=== PATIENT | female | born 1950 | race Caucasian/White ===

== ENCOUNTER → 2022-08-26 13:00 | Outpatient (CLI) | payer MEDICARE, SELFPAY | PROVIDERS: Visit Provider Internal Medicine | DX: I10 Essential (primary) hypertension (principal); I48.0 Paroxysmal atrial fibrillation; R60.9 Edema, unspecified | CPT/HCPCS: 93270 ==

== ENCOUNTER → 2022-09-16 10:51 | Outpatient (CLI) | payer MEDICARE, SELFPAY | PROVIDERS: Visit Provider Internal Medicine | DX: I10 Essential (primary) hypertension (principal); I48.0 Paroxysmal atrial fibrillation; R00.2 Palpitations | CPT/HCPCS: 78452; 93017; 93306; A9502; J2785 ==

== ENCOUNTER → 2022-12-14 12:19 | Outpatient (CLI) | payer MEDICARE, SELFPAY ==
[2022-12-14 13:37] LABS: Alanine Aminotransferase 20 U/L (12-78); Albumin Level 4.2 g/dl (3.5-5.0); Alkaline Phosphatase 86 U/L (38-126); Aspartate Amino Transferase 25 U/L (14-36); Bilirubin,Indirect 0.4 mg/dL (0.0-0.9); Bilirubin,Total 0.4 mg/dl (0.2-1.3); Bilirubin,Unconjugated 0.5 mg/dL (0.0-1.1); Chol/HDL Ratio 2.7 (1-3.5); Cholesterol 212 mg/dl (140-200); HDL Cholesterol 78 mg/dl (40-60); Total Protein,Serum 7.1 g/dl (6.3-8.2); Triglycerides 154 mg/dl (30-150); VLDL Cholesterol 31 mg/dL (0-40)
[2022-12-14 13:48] LABS: Direct LDL Cholesterol 95.21 mg/dL (100-129)
== END ==
PROVIDERS: PCP Family Medicine; Visit Provider Internal Medicine
DX: I10 Essential (primary) hypertension (principal); I48.0 Paroxysmal atrial fibrillation
CPT/HCPCS: 36415; 80061; 80076

== ENCOUNTER → 2023-01-18 14:42 | Outpatient (CLI) | payer MEDICARE, SELFPAY ==
[2023-01-18 15:56] LABS: Free T4 (Free Thyroxine) 1.12 ng/dl (0.78-2.19)
[2023-01-18 16:21] LABS: Thyroid Stimulating Hormone 1.81 uIU/mL (0.465-4.68)
== END ==
PROVIDERS: PCP Family Medicine; Visit Provider Internal Medicine
DX: I10 Essential (primary) hypertension (principal); I48.0 Paroxysmal atrial fibrillation; Z79.899 Other long term (current) drug therapy
CPT/HCPCS: 36415; 84439; 84443

== ENCOUNTER 2023-08-17 16:32 | Emergency (ER) | payer MEDICARE, SELFPAY ==
[2023-08-17 16:45] VITALS: BP 131/89; PULSE 80; RESP 19; TEMP 37; O2SAT 98; BMI 32.4
[2023-08-17 17:03] LABS: UTC Strep Screen (Rapid) Negative (Negative)
--- NOTE | 2023-08-17 17:03 | ED_ITS ---
Discharge Plan Disposition Patient Disposition: Home, Self-Care Condition: Good Prescriptions Prescriptions: New amoxicillin-pot clavulanate 875-125 mg Tablet 1 tab PO Q12H 7 Days Qty: 14 0RF No Action aspirin [Adult Low Dose Aspirin] 81 mg tablet,delayed release (DR/EC) 81 mg PO DAILY Qty: 30 5RF lisinopril 10 mg tablet 10 mg PO DAILY Xarelto 20 mg tablet 20 mg PO QPM Qty: 90 3RF Rx Instructions: administer with evening meal nebivolol [Bystolic] 10 mg tablet 10 mg PO DAILY Qty: 200 3RF Referrals Follow up/Referrals: Haresh Becerril [Primary Care Provider] - See instructions Activity Restrictions/Add. Instructions Additional Instructions/Restrictions: *Monitor Temp, Over the counter Motrin or Tylenol as directed/as needed Tylenol every 4 hours and Motrin every 6 hours (as long as your family doctor has told you that you can take it) for fever or pain. and straight to ER if unable to lower temp less than 101.0 after medication given *Warm salt water gargles may help to soothe the throat *Throat Lozenges? *Warm fluids like tea with honey may help to soothe the throat? *Sleep elevated *Humidifier/Vaporizer Your throat swab was sent for culture. Those results are typically sent to your primary care. Be sure to follow up in 2-3 days with your family doctor/primary care physician if no improvement so they can review those result and treat if necessary. If you don?t have a primary care doctor, I recommend you get one but in the mean time, you will have to return to a walk in clinic Follow up IMMEDIATELY for new or worsening symptoms or no Noticeable improvement over the next 48-72 hours. 911 for difficulty breathing or swallowing Clinical Impressions Clinical Impression: Sinusitis Qualifiers: Sinusitis location: unspecified location Chronicity: unspecified Qualified Code(s): J32.9 - Chronic sinusitis, unspecified Instructions Patient Instructions: Sinusitis, DI for Sinusitis Discharge ED Provider[place] Ari[place] [facility] [place] Stated complaint: exp to strep, poss sinus inf Mode of Arrival: Ambulatory Source of Information: Patient Limitations: No Limitations Time Seen by Provider: 08/17/23 17:03 Description of Symptoms (Recalled from Triage Doc. by RN): Pt's symptoms are sinus pain and pressure. HEENT Symptoms (Recalled from RN notes): Yes Resp Symptoms (Recalled from RN notes): No Skin Symptoms (Recalled from RN notes): No MS Symptoms (Recalled from RN notes): No Functional Status (Recalled from RN notes): n/a History of Present Illness Provider Complaint: Patient states that she has been having sinus pain and pressure for several days that has not improved States she is having some drainage in the back of her throat States that she thinks she may have a sinus infection but worried that she may have strep throat or something Related Data Home Medications Medication Instructions Recorded Confirmed lisinopril 10 mg tablet 10 mg PO DAILY 08/26/22 08/17/23 Previous Rx's Medication Instructions Recorded aspirin 81 mg tablet,delayed 81 mg PO DAILY #30 tabs 08/26/22 release (Adult Low Dose Aspirin) rivaroxaban 20 mg tablet (Xarelto) 20 mg PO QPM #90 tabs 09/09/22 nebivolol 10 mg tablet (Bystolic) 10 mg PO DAILY #200 tabs 12/25/22 amoxicillin 875 mg-potassium 1 tab PO Q12H 7 days #14 tabs 08/17/23 clavulanate 125 mg tablet Allergies Allergy/AdvReac Type Severity Reaction Status Date / Time No Known Allergies Allergy Verified 08/17/23 17:03 Worker's Comp Is this a Worker's Comp case?: No [facility] Disclaimer: The information contained in this section may have been updated after the patient was seen, as this information can be updated by other users. Medical History HTN (hypertension) PAF (paroxysmal atrial fibrillation) Social History Smoking Status: Unknown if ever smoked alcohol intake: never current occupational status: unemployed Travel in the last 8 weeks: Inside the [place] ROS Obtained: Yes All systems reviewed & no additional complaints except as documented and Yes Systems reviewed as appropriate & no additional complaints except as documented Constitutional Constitutional: Reports system reviewed and no additional complaints, except as documented and Reports as per HPI ENT Ears, Nose, Mouth, and Throat: Reports system reviewed and no additional complaints, except as documented, Reports as per HPI, Reports sinus pain, Reports sinus pressure and Reports sore throat Cardiovascular Cardiovascular: Reports system reviewed and no additional complaints, except as documented and Reports as per HPI Respiratory Respiratory: Reports system reviewed and no additional complaints, except as documented and Reports as per HPI Gastrointestinal Gastrointestingal: Reports system reviewed and no additional complaints, except as documented and as per HPI Musculoskeletal Musculoskeletal: Reports system reviewed and no additional complaints, except as documented and Reports as per HPI Physical Exam General General appearance: alert and in no apparent distress ENT ENT exam: Present mucous membranes moist Expanded ENT Exam Nose exam: Present sinus tenderness Throat exam: Present other (Pharyngeal erythema noted with PND) Respiratory Respiratory exam: Present normal lung sounds bilaterally; Absent respiratory distress or wheezes Cardiovascular Cardiovascular exam: Present regular rate, normal rhythm and normal heart sounds Neurological Exam Neurological exam: Present alert, oriented X3 and normal gait Medical Decision Making Campos Inquiry Pt receiving controlled substance: No Campos was queried for this patient: No Vital Signs: 08/17/23 16:45 Temperature 98.6 F Temperature Source Oral Pulse Rate [Right Radial] 80 Respiratory Rate 19 Blood Pressure [Right Arm] 131/89 Blood Pressure Mean [Right Arm] 103 Blood Pressure Source [Right Arm] Automatic Cuff Blood Pressure Position [Right Arm] Sitting 02 Sat by Pulse Oximetry 98 Oxygen Delivery Method Room Air Lab Data Lab results reviewed: Yes I reviewed the patient's lab results. Lab Results 08/17/23 16:40: Strep Scn Rapid Clinic Negative Orders (Tests/Meds): ORDERS Category Date Time Status Strep Screen Confirmation Stat Micro 08/17/23 16:40 Received
[2023-08-17 17:19] VITALS: BP 131/89; PULSE 80; RESP 19; TEMP 37; O2SAT 98
== END 2023-08-17 17:19 | disposition home or self-care (01) ==
PROVIDERS: Emergency Provider Nurse Practitioner; PCP Family Medicine
DX: J01.90 Acute sinusitis, unspecified (principal); R09.82 Postnasal drip; R09.81 Nasal congestion; I10 Essential (primary) hypertension; I48.0 Paroxysmal atrial fibrillation; Z79.01 Long term (current) use of anticoagulants
CPT/HCPCS: 87880

== ENCOUNTER 2023-09-29 12:16 | Outpatient (CLI) | payer MEDICARE, SELFPAY ==
--- OUTSIDE RECORDS SUMMARY | 2023-09-29 12:19 | XMS_ITS ---
Author Name Unknown Address [address] [place] [address] Phone Organization [facility] Address [address] [place] [address] Phone Care Team Providers Care Plasma Processor Name Role Phone Jed JEAN BAPTISTE, Chetan Unavailable [phone] Haresh Becerril MD Primary Care Provider [phone] Problems Includes: Active, inactive, and resolved Problems All Visits Onset Date Resolved Date Provider Condition S tatus Joint Pain in the Right Knee 05/06/2023 Chetan Adkins MD Active Last Documented On 3 11:37AM ; [facility] Plan of Treatment Instructions to patient Lose weight Last Documented On 4 10:27AM ; [facility] Lose weight Last Documented On 4 10:14AM ; [facility] Lose weight Last Documented On 4 10:31AM ; [facility] Lose weight Last Documented On 4 10:55AM ; [facility] Lose weight Last Documented On 3 11:43AM ; [facility] Assessments Includes: Assessments for all patient encounters Findings Encounter Date Overweight COOLEY Injection with Damaso Lujan PA-C 06/21/2023 Last Documented On 4 10:40AM ; [facility] Overweight COOLEY Injection with Damaso Lujan PA-C 06/14/2023 Last Documented On 4 10:41AM ; [facility] Overweight COOLEY Injection with Damaso Lujan PA-C 06/07/2023 Last Documented On 4 11:14AM ; [facility] Overweight COOLEY Injection with Damaso Lujan PA-C 05/31/2023 Last Documented On 4 11:04AM ; [facility] Overweight Physician Specified with Chetan Adkins MD 05/06/2023 Last Documented On 3 10:57AM ; [facility] Instructions Includes: Instructions for all patient encounters Instructions to patient Lose weight Last Documented On 4 10:27AM ; [facility] Lose weight Last Documented On 4 10:14AM ; [facility] Lose weight Last Documented On 4 10:31AM ; [facility] Lose weight Last Documented On 4 10:55AM ; [facility] Lose weight Last Documented On 3 11:43AM ; [facility] Medical Equipment - Implanted Devices Includes: Current and historical Devices No Medical Equipment Recorded Medications Includes: Current and historical Medications Current Medications (continue as prescribed) [facility] D[facility] Sodium 1% External Gel 06/14/2023 Pro vider: Diagnosis: Last Documented On 4 10:13AM By Amanda Mcpherson ; [facility] Bystolic 10 MG Oral Tablet 06/07/2023 Provider: Diagnosis: Last Documented On 4 10:34AM By Amanda Mcpherson ; [facility] Xarelto 10 MG Oral Tablet 06/07/2023 Provider: Diagnosis: Last Documented On 4 10:35AM By Amanda Mcpherson ; [facility] hydroCHLOROthiazide 12.5 MG Oral Tablet 03/22/2023 P rovider: Diagnosis: Last Documented On 3 11:38AM By Holly Michaels ; [facility] Lisinopril 10 MG Oral Tablet 02/25/2023 Provider: Diagnosis: Last Documented On 3 11:38AM By Holly Michaels ; [facility] Nitroglycerin 0.4 MG Sublingual Tablet Sublingual 08/23 Provider: Diagnosis: Last Documented On 4 10:33AM By Amanda Mcpherson ; [facility] [employer] Thyroid 15 MG Oral Tablet 07/13/2022 Provider: Allyssa Weems Diagnosis: Last Documented On 4 10:34AM By Amanda Mcpherson ; [facility] Past Medications on file Bisoprolol Fumarate 10 MG Oral Tablet 12/14/2022 - Provider: Diagnosis: Last Documented On 4 10:13AM By Amanda Mcpherson ; [facility] Lisinopril 10 MG Oral Tablet 12/01/2022 - 05/31/2023 P rovider: Diagnosis: Last Documented On 4 10:55AM By Amanda Mcpherson ; [facility] Clotrimazole 1% External Cream 10/11/2022 - 06/14/2023 Provider: Diagnosis: Last Documented On 4 10:13AM By Amanda Mcpherson ; [facility], [facility] Medications Administered Includes: Administered Medications in patient's chart No Administered Medications Recorded Vital Signs Includes: Vital Signs from 09/28/2022 through 09/29/2023 Vital Name 06/21/2023 10:28A 06/14/2023 10:14A 06/07/2023 10:32A 05/31/2023 10:56A 05/06/2023 11:42A Height (in) 65 65 65 65 65 Weight (lb) 196 200 200 200 200 Body Mass Index 32.6 33.3 33.3 33.3 33.3 Body Surface Area 2 2 2 2 2 Pain Level 0 1 1 0 Note: lc lc lc lc ba Last Documented: On 06/21/2023 10:28AM ; [facility] On 06/14/2023 10:15AM ; [facility] On 06/07/2023 10:32AM ; [facility] On 05/31/2023 10:56AM ; [facility] On 05/06/2023 11:42AM ; [facility] Results Includes: Results from 09/28/2022 through 09/29/2023 No Results Recorded For Specified Dates History of Present Illness History of Present Illness not supported for this document type No History of Present Illness Recorded Social History Description Last Updated Caffeine use 05/06/2023 Last Documented On 3 10:57AM ; [facility] Exercising regularly 05/06/2023 Last Documented On 3 10:57AM ; [facility] No recent change in diet 05/06/2023 Last Documented On 3 10:57AM ; [facility] Not a current smoker. 05/06/2023 Last Documented On 3 10:57AM ; [facility] Not using alcohol 05/06/2023 Last Documented On 3 10:57AM ; [facility] Not using drugs 05/06/2023 Last Documented On 3 10:57AM ; [facility] Tobacco non-user 05/06/2023 Last Documented On 3 10:57AM ; [facility] Smoking Status Unknown Procedures and Surgical History Includes: Procedures from 09/28/2022 through 09/29/2023 Procedures Code Diagnosis Performing Provider Service Location Service Date Orthovisc [place], 2cc (RIGHT) J7324 Unilateral primary osteoarthritis, right knee Damaso Lujan PA-C [facility] 06/21/2023 Last Documented On 4 11:30AM ; [facility] DRAIN/INJECT, JOINT/BURSA (RIGHT) Unilateral primary osteoarthritis, right knee Damaso Lujan PA-C [facility] 06/21/2023 Last Documented On 4 11:30AM ; [facility] DRAIN/INJECT, JOINT/BURSA (RIGHT) Unilateral primary osteoarthritis, right knee Damaso Lujan PA-C [facility] 06/14/2023 Last Documented On 4 9:16AM ; [facility] Orthovisc [place], 2cc (RIGHT) J7324 Unilateral primary osteoarthritis, right knee Damaso Lujan PA-C [facility] 06/14/2023 Last Documented On 4 9:16AM ; [facility] Orthovisc [place], 2cc (RIGHT) [id number] Unilateral primary osteoarthritis, right knee Damaso Lujan PA-C [facility] 06/07/2023 Last Documented On 4 6:33AM ; [facility], [facility] DRAIN/INJECT, JOINT/BURSA (RIGHT) [id number] Unilateral primary osteoarthritis, right knee Damaso Lujan PA-C [facility] 06/07/2023 Last Documented On 4 6:33AM ; [facility], [facility] DRAIN/INJECT, JOINT/BURSA (RIGHT) Unilateral primary osteoarthritis, right knee Damaso Lujan PA-C [facility] 05/31/2023 Last Documented On 4 6:18AM ; [facility] Orthovisc [place], 2cc (RIGHT) J7324 Unilateral primary osteoarthritis, right knee Damaso Lujan PA-C [facility] 05/31/2023 Last Documented On 4 6:18AM ; [facility] X-RAY EXAM OF KNEE 1 OR 2 VIEWS (RIGHT) [id number] Unilateral primary osteoarthritis, right knee Chetan Adkins [facility] 05/06/2023 Last Documented On 3 4:40PM ; [facility] Injection, betamethasone acetate 6mg per cc and betamethason [id number] Unilateral primary osteoarthritis, right knee Chetan Adkins MD [facility] 05/06/2023 Last Documented On 3 4:40PM ; [facility], [facility] DRAIN/INJECT, JOINT/BURSA (RIGHT) Unilateral primary osteoarthritis, right knee Chetan Adkins MD [facility] 05/06/2023 Last Documented On 3 4:40PM ; [facility], [facility] Surgical History Last Updated Past Surgical History: tubal ligation Last Documented On 3 10:57AM ; [facility] History of Past Surgical History: 2022 Last Documented On 3 10:57AM ; [facility] Medical History Includes: Medical History in patient's chart Description Last Updated History of Heartburn / Acid Reflux 05/06 Last Documented On 3 10:57AM ; [facility] History of Hypertension 05/06/2023 Last Documented On 3 10:57AM ; [facility] History of Irregular Heartbeat 3 Last Documented On 3 10:57AM ; [facility] Family History Includes: Family History in patient's chart Description Last Updated Family history of systemic hypertension 05/06/2023 Last Documented On 3 10:57AM ; [facility] Stroke / Seizures 05/06/2023 Last Documented On 3 10:57AM ; [facility] Maternal grandmother's history of system ic hypertension 05/06/2023 Last Documented On 3 10:57AM ; [facility] Maternal history of systemic hypertensio n 05/06/2023 Last Documented On 3 10:57AM ; [facility] Paternal grandmother's history of Stroke / Seizures 05/06/2023 Last Documented On 3 10:57AM ; [facility] Paternal history of family history [use for free text] 05/06/2023 Last Documented On 3 10:57AM ; [facility] Paternal history of systemic hypertensio n 05/06/2023 Last Documented On 3 10:57AM ; [facility] Review of Systems Review of Systems not supported for this document type No Review of Systems Recorded Mental Status Description No anxiety Functional Status No Functional Status Recorded Physical Exam Physical Exam not supported for this document type No Physical Exam Recorded Allergies Includes: Active, inactive, and resolved Allergies No Known Allergies Encounters Includes: Encounters from 09/28/2022 through 09/29/2023 Encounter Provider Location Date Check-In Time Check-Out Time Diagnosis COOLEY Injection Damaso Lujan PA-C [facility] 06/21/19 24 10:20AM 10:37AM Overweight COOLEY Injection Damaso Lujan PA-C [facility] 06/14/19 24 10:07AM 10:31AM Overweight COOLEY Injection Damaso Lujan PA-C [facility] 06/07/19 24 10:19AM 10:45AM Overweight [facility] Injection [facility]as[facility] Lujan [facility] 05/31/19 24 10:50AM 11:05AM Overweight Physician Specified [facility]20 23 11:36AM 11:59AM Overweight Insurance Includes: Active Insurance Policies Plan Name Member ID Group # Subscriber Relationship Effect ricki Dates 1 - Medicare Part B [facility] [id number] Marilee Salvador Self 2 - [facility] [employer] [id number] Marilee Salvador Self Clinical Notes Includes: Signed Clinical Notes starting from 05/07/2022 * Progress note Date Encounter Last Documented by 06/21/2023 COOLEY Injection Last documented on 06/21/2023; 10:40 AM, Damaso Lujan PA-C; [facility] Active Problems & Conditions - Joint Pain in the Right Knee Chief Complaint The Chief Complaint is: Right Knee Pain. Referred Here Referred by self. History of Present Illness Marilee Salvador is a 73 year old female. - Symptoms catching. - Allergy list reviewed - Problem list reviewed - Medication list reviewed - Patient pain level from 1-10: 2 better: ice, bemer device, tylenol, menthol worse: twisting, stairs - History of Home Exercise - History of Injections - No previous treatment. Medications used for this condition: Patient is here today for the 4th Orthovisc injection to the for the right knee she is right knee OA she says she feels like these have helped her from a pain point of view and she is able to have less pain with the knee Current Medication - Bystolic 10 MG Oral Tablet 0 days, 0 refills - [facility] Dicl[facility] Sodium 1% External Gel 0 days, 0 refills - hydroCHLOROthiazide 12.5 MG Oral Tablet 90 days, 0 refills - Lisinopril 10 MG Oral Tablet 90 days, 0 refills - Nitroglycerin 0.4 MG Sublingual Tablet Sublingual 14 days, 0 refills - [employer] Thyroid 15 MG Oral Tablet 30 days, 0 refills - Xarelto 10 MG Oral Tablet 0 days, 0 refills Past Medical/Surgical History Diagnoses: Irregular Heartbeat Heartburn / Acid Reflux Hypertension Surgical: - Past Surgical History: tubal ligation - Past Surgical History: Social History Not a current smoker. Current diet: No recent change in diet. Caffeine use: Caffeine use. Tobacco use: Tobacco non-user. Alcohol: Not using alcohol. Drug Use: Not using drugs. Habits: Exercising regularly. Allergies - No Known Allergies Family History Stroke / Seizures Systemic hypertension Paternal: Systemic hypertension family history [use for free text] Maternal: Systemic hypertension Paternal grandmother's: Stroke / Seizures Maternal grandmother's: Systemic hypertension Review Of Systems Systemic: No symptoms, not feeling tired, no recent weight loss, and no recent weight gain. Head: No headache and no sinus pain. Eyes: No vision problems. Cataracts and Glasses/Contacts. No Glaucoma. Otolaryngeal: No hearing loss and no tinnitus. Cardiovascular: No chest pain or discomfort. Palpitations and Hypertension. No High Cholesterol. Pulmonary: No daytime asthma symptoms and no chronic cough. No wheezing. Gastrointestinal: No heartburn and no abdominal pain. No Indigestion. Acid Reflux. No Peptic Ulcer, no GI Stomach Bleed, and no Ulcers. Endocrine: No hot flashes, no muscle weakness, no Diabetes, no Hypothyroid, and no Hyperthyroid. Hematologic: No easy bleeding, no tendency for easy bruising, and no Anemia. Musculoskeletal: Musculoskeletal symptoms Knee, feet. No Arthritis and no lower back pain. No soft tissue swelling and no localized joint pain. Neurological: No dizziness, no convulsions, and no numbness. Psychological: No anxiety, no emotional lability, no depression, and no insomnia. Not crying for no reason. Skin: No dry skin. No Ulcers, no Scars, and no rash. Allergic and Immunologic: No complaint of seasonal allergic reaction. Physical Findings - Vitals taken 06/21/2023 10:28 am lc Height 65 in Weight 196 lbs Body Mass Index 32.6 kg/m2 Body Surface Area 2 m2 Pain Level 0 No significant swelling today with right knee she is tender along the medial compartment range motion is unchanged compared to last visit no skin site reaction to the previous injection Assessment - Overweight Right knee OA Previous Tests Basic Management Procedures And Services: - Brace Available previous imaging studies were reviewed Available previous history reviewed Counseling/Education - Lose weight Plan Fall Risk Assessment: This patient has been identified as a fall risk. Balance/gait along with postural blood pressure, vision and home fall hazards have been assessed. Medications have been reviewed, and recommendations made with regard to contributing factors for future falls. Plan of care: Consideration of vitamin D supplementation along with balance and strength training with consideration for formal physical therapy has been discussed with the patient. Patient was seen by myself Damaso Lujan PA-C. 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 She is she can call around the 5th month to schedule those again. Patient was given Orthovisc injection 4th today for the right knee under sterile technique. She tolerated it well. Band-Aid was applied afterwards. See her back as needed for now Notes This dictation was done with voice recognition software and may contain errors and omissions. Practice Management Use of tobacco assessment performed and patient screened for future fall risk documentation of any fall with injury in past year Review of medications documented. Care Team - Haresh Becerril MD * Progress note Date Encounter Last Documented by 06/14/2023 COOLEY Injection Last documented on 06/14/2023; 10:41 AM, Damaso Lujan PA-C; [facility] Active Problems & Conditions - Joint Pain in the Right Knee Chief Complaint The Chief Complaint is: Right Knee Pain. Referred Here Referred by self. History of Present Illness Marilee Salvador is a 73 year old female. - Symptoms catching. - Allergy list reviewed - Problem list reviewed - Medication list reviewed - Patient pain level from 1-10: 2 better: ice, bemer device, tylenol, menthol worse: twisting, stairs - History of Home Exercise - History of Injections - No previous treatment. Medications used for this condition: Patient is here today for the 3rd Orthovisc injection to the right knee she says her pain will kind of come and go sometimes he feels like it gives out. She does feel like these are helping though she rates her pain 1/10 Current Medication - Bystolic 10 MG Oral Tablet 0 days, 0 refills - [facility] Dicl[facility] Sodium 1% External Gel 0 days, 0 refills - hydroCHLOROthiazide 12.5 MG Oral Tablet 90 days, 0 refills - Lisinopril 10 MG Oral Tablet 90 days, 0 refills - Nitroglycerin 0.4 MG Sublingual Tablet Sublingual 14 days, 0 refills - [employer] Thyroid 15 MG Oral Tablet 30 days, 0 refills - Xarelto 10 MG Oral Tablet 0 days, 0 refills Past Medical/Surgical History Diagnoses: Irregular Heartbeat Heartburn / Acid Reflux Hypertension Surgical: - Past Surgical History: tubal ligation - Past Surgical History: Social History Not a current smoker. Current diet: No recent change in diet. Caffeine use: Caffeine use. Tobacco use: Tobacco non-user. Alcohol: Not using alcohol. Drug Use: Not using drugs. Habits: Exercising regularly. Allergies - No Known Allergies Family History Stroke / Seizures Systemic hypertension Paternal: Systemic hypertension family history [use for free text] Maternal: Systemic hypertension Paternal grandmother's: Stroke / Seizures Maternal grandmother's: Systemic hypertension Review Of Systems Systemic: No symptoms, not feeling tired, no recent weight loss, and no recent weight gain. Head: No headache and no sinus pain. Eyes: No vision problems. Cataracts and Glasses/Contacts. No Glaucoma. Otolaryngeal: No hearing loss and no tinnitus. Cardiovascular: No chest pain or discomfort. Palpitations and Hypertension. No High Cholesterol. Pulmonary: No daytime asthma symptoms and no chronic cough. No wheezing. Gastrointestinal: No heartburn and no abdominal pain. No Indigestion. Acid Reflux. No Peptic Ulcer, no GI Stomach Bleed, and no Ulcers. Endocrine: No hot flashes, no muscle weakness, no Diabetes, no Hypothyroid, and no Hyperthyroid. Hematologic: No easy bleeding, no tendency for easy bruising, and no Anemia. Musculoskeletal: Musculoskeletal symptoms Knee, feet. No Arthritis and no lower back pain. No soft tissue swelling and no localized joint pain. Neurological: No dizziness, no convulsions, and no numbness. Psychological: No anxiety, no emotional lability, no depression, and no insomnia. Not crying for no reason. Skin: No dry skin. No Ulcers, no Scars, and no rash. Allergic and Immunologic: No complaint of seasonal allergic reaction. Physical Findings - Vitals taken 06/14/2023 10:14 am lc Height 65 in Weight 200 lbs Body Mass Index 33.3 kg/m2 Body Surface Area 2 m2 Pain Level 1 No significant swelling today with right knee she is tender along the medial compartment range motion is unchanged compared to last visit no skin site reaction to the previous injection Tests X-rays show grade 4 [id number] changes about the patellofemoral medial compartments of the right knee with osteophytes in all 3 compartments and left knee shows narrowing of the medial patellofemoral compartment as well grade 3 not quite as severe as the right Assessment - Overweight Right knee OA Previous Tests Basic Management Procedures And Services: - Brace Available previous imaging studies were reviewed Available previous history reviewed Counseling/Education - Lose weight Plan Fall Risk Assessment: This patient has been identified as a fall risk. Balance/gait along with postural blood pressure, vision and home fall hazards have been assessed. Medications have been reviewed, and recommendations made with regard to contributing factors for future falls. Plan of care: Consideration of vitamin D supplementation along with balance and strength training with consideration for formal physical therapy has been discussed with the patient. Patient was seen by myself Damaso Lujan PA-C. Patient will follow up next week for the last injection. Patient was given Orthovisc injection number 3 today of the right knee under sterile technique. She tolerated it well. Band-Aid applied afterwards. She tolerated this well. Notes This dictation was done with voice recognition software and may contain errors and omissions. Practice Management Use of tobacco assessment performed and patient screened for future fall risk documentation of any fall with injury in past year Review of medications documented. Care Team - Haresh Becerril MD * Progress note Date Encounter Last Documented by 06/07/2023 COOLEY Injection Last documented on 06/07/2023; 11:14 AM, Damaso Lujan PA-C; [facility] Active Problems & Conditions - Joint Pain in the Right Knee Chief Complaint The Chief Complaint is: Right Knee Pain. Referred Here Referred by self. History of Present Illness Marilee Salvador is a 73 year old female. - Symptoms catching. - Allergy list reviewed - Problem list reviewed - Medication list reviewed - Patient pain level from 1-10: 2 better: ice, bemer device, tylenol, menthol worse: twisting, stairs - History of Home Exercise - History of Injections - No previous treatment. Medications used for this condition: Patient is here today for the 2nd Orthovisc injection for the right knee she has not seen much of a change yet she says her knee only bother her if she is doing any twisting or trying to do steps. She rates her pain level 1/2. Current Medication - Bisoprolol Fumarate 10 MG Oral Tablet 30 days, 0 refills - Bystolic 10 MG Oral Tablet 0 days, 0 refills - Clotrimazole 1% External Cream 30 days, 0 refills - hydroCHLOROthiazide 12.5 MG Oral Tablet 90 days, 0 refills - Lisinopril 10 MG Oral Tablet 90 days, 0 refills - Nitroglycerin 0.4 MG Sublingual Tablet Sublingual 14 days, 0 refills - CUSTOMER ADVOCATE Thyroid 15 MG Oral Tablet 30 days, 0 refills - Xarelto 10 MG Oral Tablet 0 days, 0 refills Past Medical/Surgical History Diagnoses: Irregular Heartbeat Heartburn / Acid Reflux Hypertension Surgical: - Past Surgical History: tubal ligation - Past Surgical History: Social History Not a current smoker. Current diet: No recent change in diet. Caffeine use: Caffeine use. Tobacco use: Tobacco non-user. Alcohol: Not using alcohol. Drug Use: Not using drugs. Habits: Exercising regularly. Allergies - No Known Allergies Family History Stroke / Seizures Systemic hypertension Paternal: Systemic hypertension family history [use for free text] Maternal: Systemic hypertension Paternal grandmother's: Stroke / Seizures Maternal grandmother's: Systemic hypertension Review Of Systems Systemic: No symptoms, not feeling tired, no recent weight loss, and no recent weight gain. Head: No headache and no sinus pain. Eyes: No vision problems. Cataracts and Glasses/Contacts. No Glaucoma. Otolaryngeal: No hearing loss and no tinnitus. Cardiovascular: No chest pain or discomfort. Palpitations and Hypertension. No High Cholesterol. Pulmonary: No daytime asthma symptoms and no chronic cough. No wheezing. Gastrointestinal: No heartburn and no abdominal pain. No Indigestion. Acid Reflux. No Peptic Ulcer, no GI Stomach Bleed, and no Ulcers. Endocrine: No hot flashes, no muscle weakness, no Diabetes, no Hypothyroid, and no Hyperthyroid. Hematologic: No easy bleeding, no tendency for easy bruising, and no Anemia. Musculoskeletal: Musculoskeletal symptoms Knee, feet. No Arthritis and no lower back pain. No soft tissue swelling and no localized joint pain. Neurological: No dizziness, no convulsions, and no numbness. Psychological: No anxiety, no emotional lability, no depression, and no insomnia. Not crying for no reason. Skin: No dry skin. No Ulcers, no Scars, and no rash. Allergic and Immunologic: No complaint of seasonal allergic reaction. Physical Findings - Vitals taken 06/07/2023 10:32 am lc Height 65 in Weight 200 lbs Body Mass Index 33.3 kg/m2 Body Surface Area 2 m2 Pain Level 1 No significant swelling today with right knee she is tender along the medial compartment range motion is unchanged compared to last visit no skin site reaction to the previous injection Tests X-rays show grade 4 [id number] changes about the patellofemoral medial compartments of the right knee with osteophytes in all 3 compartments and left knee shows narrowing of the medial patellofemoral compartment as well grade 3 not quite as severe as the right Assessment - Overweight Right knee OA Previous Tests Basic Management Procedures And Services: - Brace Available previous imaging studies were reviewed Available previous history reviewed Counseling/Education - Lose weight Plan Fall Risk Assessment: This patient has been identified as a fall risk. Balance/gait along with postural blood pressure, vision and home fall hazards have been assessed. Medications have been reviewed, and recommendations made with regard to contributing factors for future falls. Plan of care: Consideration of vitamin D supplementation along with balance and strength training with consideration for formal physical therapy has been discussed with the patient. Patient was given an Orthovisc injection #2 today for the right knee under sterile technique. She tolerated it well. Band-Aid applied afterwards. She tolerated this well. We will see her back next week for the 3rd injection Patient was seen by myself Damaso Lujan PA-C. Notes This dictation was done with voice recognition software and may contain errors and omissions. Practice Management Use of tobacco assessment performed and patient screened for future fall risk documentation of any fall with injury in past year Review of medications documented. Care Team - Haresh Becerril MD * Progress note Date Encounter Last Documented by 05/31/2023 COOLEY Injection Last documented on 05/31/2023; 11:04 AM, Damaso Lujan PA-C; [facility], [facility] Active Problems & Conditions - Joint Pain in the Right Knee Chief Complaint The Chief Complaint is: Right Knee Pain. Referred Here Referred by self. History of Present Illness Marilee Salvador is a 73 year old female. - Symptoms catching. - Allergy list reviewed - Problem list reviewed - Medication list reviewed - Patient pain level from 1-10: 2 better: ice, bemer device, tylenol, menthol worse: twisting, stairs - History of Home Exercise - History of Injections - No previous treatment. Medications used for this condition: Patient is here today for the 1st Orthovisc injection to the right knee her biggest complaint is if she is to do a lot of stairs for her knee tends to bother her. Dev pain since being on the medial compartment of the right knee Current Medication - Bisoprolol Fumarate 10 MG Oral Tablet 30 days, 0 refills - Clotrimazole 1% External Cream 30 days, 0 refills - hydroCHLOROthiazide 12.5 MG Oral Tablet 90 days, 0 refills - Lisinopril 10 MG Oral Tablet 90 days, 0 refills Past Medical/Surgical History Diagnoses: Irregular Heartbeat Heartburn / Acid Reflux Hypertension Surgical: - Past Surgical History: tubal ligation - Past Surgical History: Social History Not a current smoker. Current diet: No recent change in diet. Caffeine use: Caffeine use. Tobacco use: Tobacco non-user. Alcohol: Not using alcohol. Drug Use: Not using drugs. Habits: Exercising regularly. Allergies - No Known Allergies Family History Stroke / Seizures Systemic hypertension Paternal: Systemic hypertension family history [use for free text] Maternal: Systemic hypertension Paternal grandmother's: Stroke / Seizures Maternal grandmother's: Systemic hypertension Review Of Systems Systemic: No symptoms, not feeling tired, no recent weight loss, and no recent weight gain. Head: No headache and no sinus pain. Eyes: No vision problems. Cataracts and Glasses/Contacts. No Glaucoma. Otolaryngeal: No hearing loss and no tinnitus. Cardiovascular: No chest pain or discomfort. Palpitations and Hypertension. No High Cholesterol. Pulmonary: No daytime asthma symptoms and no chronic cough. No wheezing. Gastrointestinal: No heartburn and no abdominal pain. No Indigestion. Acid Reflux. No Peptic Ulcer, no GI Stomach Bleed, and no Ulcers. Endocrine: No hot flashes, no muscle weakness, no Diabetes, no Hypothyroid, and no Hyperthyroid. Hematologic: No easy bleeding, no tendency for easy bruising, and no Anemia. Musculoskeletal: Musculoskeletal symptoms Knee, feet. No Arthritis and no lower back pain. No soft tissue swelling and no localized joint pain. Neurological: No dizziness, no convulsions, and no numbness. Psychological: No anxiety, no emotional lability, no depression, and no insomnia. Not crying for no reason. Skin: No dry skin. No Ulcers, no Scars, and no rash. Allergic and Immunologic: No complaint of seasonal allergic reaction. Physical Findings - Vitals taken 05/31/2023 10:56 am lc Height 65 in Weight 200 lbs Body Mass Index 33.3 kg/m2 Body Surface Area 2 m2 Pain Level 0 No significant effusion with right knee tender along the medial compartment range motion 0 to 120 Tests X-rays show grade 4 [id number] changes about the patellofemoral medial compartments of the right knee with osteophytes in all 3 compartments and left knee shows narrowing of the medial patellofemoral compartment as well grade 3 not quite as severe as the right Assessment - Overweight Right knee OA Previous Tests Basic Management Procedures And Services: - Brace Available previous imaging studies were reviewed Available previous history reviewed Counseling/Education - Lose weight Plan Fall Risk Assessment: This patient has been identified as a fall risk. Balance/gait along with postural blood pressure, vision and home fall hazards have been assessed. Medications have been reviewed, and recommendations made with regard to contributing factors for future falls. Plan of care: Consideration of vitamin D supplementation along with balance and strength training with consideration for formal physical therapy has been discussed with the patient. Patient was seen by myself Damaso Lujan PA-C. Patient will follow up next week for the 2nd injection. Patient was given Orthovisc injection one today to the right knee under sterile technique. She tolerated it well. Band-Aid applied afterwards. Notes This dictation was done with voice recognition software and may contain errors and omissions. Practice Management Use of tobacco assessment performed and patient screened for future fall risk documentation of any fall with injury in past year Review of medications documented. Care Team - Haresh Becerril MD * Progress note Date Encounter Last Documented by 05/06/2023 Physician Specified Last documen jr on 05/07/2023; 10:57 AM, Chetan Adkins MD; [facility], [facility] Active Problems & Conditions - Joint Pain in the Right Knee Subjective Have you ever tried physical therapy for this and how long and where? No What injections have you tried for this pain? No Last injection date? Have you had prior surgery on this area? No What medications have you tried for this pain? Tylenol, ice Have you tried to lose weight? No Chief Complaint The Chief Complaint is: Right Knee Pain. Referred Here Referred by self. History of Present Illness Marilee Salvador is a 73 year old female. - Symptoms catching. - Allergy list reviewed - Problem list reviewed - Medication list reviewed - Patient pain level from 1-10: 2 better: ice, bemer device, tylenol, menthol worse: twisting, stairs - History of Home Exercise - History of Injections - No previous treatment. Medications used for this condition: Patient presents with longstanding knee pain her had knee replacement a few years ago has done well her knee has been gradually getting increasing Mark painful in severity difficulty with standing walking get up and down from seated position and stair climbing cage difficulty sleeping no previous surgeries previous treatment included activity modification Tylenol ice and this is no longer allowing her to function normally and she seeks further relief of the right knee pain at this time Current Medication - Bisoprolol Fumarate 10 MG Oral Tablet 30 days, 0 refills - Clotrimazole 1% External Cream 30 days, 0 refills - hydroCHLOROthiazide 12.5 MG Oral Tablet 90 days, 0 refills - Lisinopril 10 MG Oral Tablet 90 days, 0 refills - Lisinopril 10 MG Oral Tablet 90 days, 0 refills Past Medical/Surgical History Diagnoses: Irregular Heartbeat Heartburn / Acid Reflux Hypertension Surgical: - Past Surgical History: - Past Surgical History: tubal ligation Social History Not a current smoker. Current diet: No recent change in diet. Caffeine use: Caffeine use. Tobacco use: Tobacco non-user. Alcohol: Not using alcohol. Drug Use: Not using drugs. Habits: Exercising regularly. Allergies - No Known Allergies Family History Stroke / Seizures Systemic hypertension Paternal: Systemic hypertension family history [use for free text] Maternal: Systemic hypertension Paternal grandmother's: Stroke / Seizures Maternal grandmother's: Systemic hypertension Review Of Systems Systemic: No symptoms, not feeling tired, no recent weight loss, and no recent weight gain. Head: No headache and no sinus pain. Eyes: No vision problems. Cataracts and Glasses/Contacts. No Glaucoma. Otolaryngeal: No hearing loss and no tinnitus. Cardiovascular: No chest pain or discomfort. Palpitations and Hypertension. No High Cholesterol. Pulmonary: No daytime asthma symptoms and no chronic cough. No wheezing. Gastrointestinal: No heartburn and no abdominal pain. No Indigestion. Acid Reflux. No Peptic Ulcer, no GI Stomach Bleed, and no Ulcers. Endocrine: No hot flashes, no muscle weakness, no Diabetes, no Hypothyroid, and no Hyperthyroid. Hematologic: No easy bleeding, no tendency for easy bruising, and no Anemia. Musculoskeletal: Musculoskeletal symptoms Knee, feet. No Arthritis and no lower back pain. No soft tissue swelling and no localized joint pain. Neurological: No dizziness, no convulsions, and no numbness. Psychological: No anxiety, no emotional lability, no depression, and no insomnia. Not crying for no reason. Skin: No dry skin. No Ulcers, no Scars, and no rash. Allergic and Immunologic: No complaint of seasonal allergic reaction. Physical Findings - Vitals taken 05/06/2023 11:42 am ba Height 65 in 59 - 78 Weight 200 lbs 95 - 175 Body Mass Index 33.3 kg/m2 Body Surface Area 2 m2 Right knee shows varus deformity with 10 degree flexion contracture flexion 120 with normal stability tenderness over the medial joint line anterior and posterior lateral joint line is nontender femoral joint shows mild crepitation hip motion is normal there is no groin pain slight antalgic gait is noted Tests X-rays show grade 4 [id number] changes about the patellofemoral medial compartments of the right knee with osteophytes in all 3 compartments and left knee shows narrowing of the medial patellofemoral compartment as well grade 3 not quite as severe as the right Assessment - Overweight OA both knees right greater than left Previous Tests Imaging: X-Ray: An X-ray was performed. MRI Scan: An MRI was performed. Basic Management Procedures And Services: - Brace Counseling/Education - Lose weight Plan Fall Risk Assessment: This patient has been identified as a fall risk. Balance/gait along with postural blood pressure, vision and home fall hazards have been assessed. Medications have been reviewed, and recommendations made with regard to contributing factors for future falls. Plan of care: Consideration of vitamin D supplementation along with balance and strength training with consideration for formal physical therapy has been discussed with the patient. Risks and benefits of the injection were outlined to the patient. They wish to proceed. The Right knee was prepped with alcohol. I injected 1 cc of Celestone and 4 cc of 1% lidocaine into the joint. He tolerated this well. The needle was withdrawn and a Band-Aid was placed inside of the injection. patient would like to try other treatments to avoid knee replacement in the near future steroid injection is likely a short-term relief for couple months we will go and obtain a preauthorization for Orthovisc injections as well and see her back to start those in 2 to 3 months Notes This dictation was done with voice recognition software and may contain errors and omissions. Practice Management Use of tobacco assessment performed and patient screened for future fall risk documentation of any fall with injury in past year Review of medications documented.
--- OUTSIDE RECORDS SUMMARY | 2023-09-29 12:19 | XMS_ITS | Clinical Summary ---
Author Name Unknown Address [address] [place] [address] Phone Organization [facility] Address [address] [place] [address] Phone Care Team Providers Care Certified Medical Transcriptionist Name Role Phone Jed JEAN BAPTISTE, Chetan Unavailable [phone] Haresh Becerril MD Primary Care Provider [phone] Reason for Visit and Chief Complaint The Chief Complaint is: Right Knee Pain Problems Includes: Problems addressed during this encounter and other active Problems All Visits Onset Date Resolved Date Provider Condition S tatus Joint Pain in the Right Knee 05/06/2023 Chetan Adkins MD Active Last Documented On 3 11:37AM ; [facility] Plan of Treatment Fall Risk Assessment: This patient has been [...] therapy has been discussed with the patient. - Last Documented On 06/14/2023 10:41AM ; [facility] Patient was seen by myself Damaso Lujan PA-C. Patient will follow up next week for the last injection. Patient was given Orthovisc injection number 3 today of the right knee under sterile technique. She tolerated it well. Band-Aid applied afterwards. She tolerated this well. - Last Documented On 06/14/2023 10:41AM ; [facility] Instructions to patient Lose weight Last Documented On 4 10:14AM ; [facility], [facility] Assessments Includes: Assessments from this encounter Findings - Overweight - Last Documented On 06/14/2023 10:41AM ; [facility], [facility] Right knee OA - Last Documented On 06/14/2023 10:41AM ; [facility], [facility] Instructions Includes: Instructions from this encounter Instructions to patient Lose weight Last Documented On 4 10:14AM ; [facility], [facility] Medical Equipment - Implanted Devices Includes: Current Devices No Medical Equipment Recorded Medications Includes: Medications discussed during this encounter and other current Medications Discontinued / Stopped on this date on 12/14/2022 Bisoprolol Fumarate 10 MG Oral Tablet Pro vider: Diagnosis: Last Documented On 4 10:13AM By Amanda Mcpherson ; [facility], [facility] Clotrimazole 1% External Cream Provider: Diagnosis: Last Documented On 4 10:13AM By Amanda Mcpherson ; [facility], [facility] Current Medications (continue as prescribed) [facility] Diclofen[facility] Sodium 1% External Gel 06/14/2023 Pro vider: Diagnosis: Last Documented On 4 10:13AM By Amanda Mcpherson ; [facility], [facility] Bystolic 10 MG Oral Tablet 06/07/2023 Provider: Diagnosis: Last Documented On 4 10:34AM By Amanda Mcpherson ; [facility], [facility] Xarelto 10 MG Oral Tablet 06/07/2023 Provider: Diagnosis: Last Documented On 4 10:35AM By Amanda Mcpherson ; [facility], [facility] hydroCHLOROthiazide 12.5 MG Oral Tablet 03/22/2023 P rovider: Diagnosis: Last Documented On 3 11:38AM By Holly Michaels ; [facility], [facility] Lisinopril 10 MG Oral Tablet 02/25/2023 Provider: Diagnosis: Last Documented On 3 11:38AM By Holly Michaels ; [facility], [facility] Nitroglycerin 0.4 MG Sublingual Tablet Sublingual 08/23 Provider: Diagnosis: Last Documented On 4 10:33AM By Amanda Mcpherson ; [facility] [employer] Thyroid 15 MG Oral Tablet 07/13/2022 Provider: Allyssa Weems Diagnosis: Last Documented On 4 10:34AM By Amanda Mcpherson ; [facility], [facility] Medications Administered Includes: Administered Medications from this encounter No Administered Medications Recorded Vital Signs Includes: Vital Signs from this encounter Vital Name 06/14/2023 10:14A Height (in) 65 Weight (lb) 200 Body Mass Index 33.3 Body Surface Area 2 Pain Level 1 Note: lc Last Documented: On 06/14/2023 10:15A M ; [facility], [facility] Results Includes: Results discussed during this encounter No Results Recorded For Specified Dates History of Present Illness Includes: History of Present Illness from this encounter RAJ Salvador is a 73 year old female. - Symptoms catching. - Allergy list reviewed - Problem list reviewed - Medication list reviewed - Patient pain level from 1-10: 2 better: ice, bemer device, tylenol, menthol worse: twisting, stairs ? History of Home Exercise ? History of Injections ? No previous treatment. Medications used for this condition: Patient is here today for the 3rd Orthovisc injection to the right knee she says her pain will kind of come and go sometimes he feels like it gives out. She does feel like these are helping though she rates her pain 06/02 Social History Description Last Updated Caffeine use 05/06/2023 Last Documented On 4 10:14AM ; [facility], [facility] Exercising regularly 05/06/2023 Last Documented On 4 10:14AM ; [facility], [facility] No recent change in diet 05/06/2023 Last Documented On 4 10:14AM ; [facility], [facility] Not a current smoker. 05/06/2023 Last Documented On 4 10:14AM ; [facility], [facility] Not using alcohol 05/06/2023 Last Documented On 4 10:14AM ; [facility], [facility] Not using drugs 05/06/2023 Last Documented On 4 10:14AM ; [facility], [facility] Tobacco non-user 05/06/2023 Last Documented On 4 10:14AM ; [facility], [facility] Smoking Status Unknown Procedures and Surgical History Includes: Procedures from this encounter Procedures Code Diagnosis Performing Provider Service Location Service Date DRAIN/INJECT, JOINT/BURSA (RIGHT) Unilateral primary osteoarthritis, right knee Damaso Lujan PA-C [facility] 06/14/2023 Last Documented On 4 9:16AM ; [facility] Orthovisc Hyaluonan, 2cc (RIGHT) J7324 Unilateral primary osteoarthritis, right knee Damaso Lujan PA-C [facility] 06/14/2023 Last Documented On 4 9:16AM ; [facility] use of tobacco assessment performed 1000F Last Documented On 4 10:14AM ; [facility] patient screened for future fall risk: documentation of any fall with injury in past year 1100F Last Documented On 4 10:14AM ; [facility] review of medications documented 1160F Last Documented On 4 10:14AM ; [facility] brace Last Documented On 4 10:14AM ; [facility] Surgical History Last Updated Past Surgical History: tubal ligation Last Documented On 4 10:14AM ; [facility] History of Past Surgical History: 2022 Last Documented On 4 10:14AM ; [facility] Medical History Includes: Medical History addressed during this encounter Description Last Updated History of Heartburn / Acid Reflux 05/06 Last Documented On 4 10:14AM ; [facility] History of Hypertension 05/06/2023 Last Documented On 4 10:14AM ; [facility] History of Irregular Heartbeat 3 Last Documented On 4 10:14AM ; [facility], [facility] Family History Includes: Family History addressed during this encounter Description Last Updated Family history of systemic hypertension 05/06/2023 Last Documented On 4 10:14AM ; [facility], [facility] Stroke / Seizures 05/06/2023 Last Documented On 4 10:14AM ; [facility], [facility] Maternal grandmother's history of system ic hypertension 05/06/2023 Last Documented On 4 10:14AM ; [facility], [facility] Maternal history of systemic hypertensio n 05/06/2023 Last Documented On 4 10:14AM ; [facility], [facility] Paternal grandmother's history of Stroke / Seizures 05/06/2023 Last Documented On 4 10:14AM ; [facility], [facility] Paternal history of family history [use for free text] 05/06/2023 Last Documented On 4 10:14AM ; [facility], [facility] Paternal history of systemic hypertensio n 05/06/2023 Last Documented On 4 10:14AM ; [facility], [facility] Review of Systems Includes: Review of Systems from this encounter Systemic: No symptoms, not feeling tired, no [...] Immunologic: No complaint of seasonal allergic reaction. Mental Status Includes: Mental Status from this encounter Description No anxiety Functional Status Includes: Functional Status from this encounter No Functional Status Recorded Physical Exam Includes: Physical Exam from this encounter Allergies Includes: Active Allergies No Known Allergies Encounters Encounter Provider Location Date Check-In Time Check-Out Time Diagnosis COOLEY Injection Damaso Lujan PA-C [facility] 06/14/19 24 10:07AM 10:31AM Overweight Insurance Includes: Active Insurance Policies Plan Name Member ID Group # Subscriber Relationship Effect ricki Dates 1 - Medicare Part B [facility] [id number] Marilee Salvador Self 2 - [facility] [employer] [id number] Marilee Salvador Self Clinical Notes Includes: Clinical Notes from this encounter * Progress note Date Encounter Last Documented by 06/14/2023 COOLEY Injection Last documented on 06/14/2023; 10:41 AM, Damaso Lujan PA-C; [facility], [facility] Active Problems & Conditions - Joint [...] Tablet Sublingual 14 days, 0 refills - [employer] Thyroid 15 MG Oral Tablet 30 days, [...] previous injection Tests X-rays show grade 4 [id number] changes about the patellofemoral medial compartments of [...]
--- OUTSIDE RECORDS SUMMARY | 2023-09-29 12:19 | XMS_ITS ---
Care Plan - [facility], [facility] Created on: September 29, 2023 Marilee Salvador : 1950 Sex: Female Author Name Unknown Address [address] [place] [address] [place] [address] Phone Organization [facility] Address [address] [place] [address] Phone Care Team Providers Care Skid Worker Name Role Phone Jed JEAN BAPTISTE, Chetan Unavailable [phone] Jone JEAN BAPTISTE, Haresh Villasenor Primary Care Provider [phone]
--- OUTSIDE RECORDS SUMMARY | 2023-09-29 12:19 | XMS_ITS | Clinical Summary ---
Author Name Unknown Address [address] [place] [address] Phone Organization [facility] , [facility] Address [address] [place] [address] Phone Care Team Providers Care Pasta Press Operator Name Role Phone Chetan Adkins MD Unavailable [phone] Haresh Becerril MD Primary Care Provider [phone] Reason for Visit and Chief Complaint The Chief Complaint is: Right Knee Pain Problems Includes: Problems addressed during this encounter and other active Problems All Visits Onset Date Resolved Date Provider Condition S tatus Joint Pain in the Right Knee 05/06/2023 Chetan Adkins MD Active Last Documented On 3 11:37AM ; [facility] Plan of Treatment Fall Risk Assessment: [...] with the patient. - Last Documented On 06/21/2023 10:40AM ; [facility] Patient was seen by myself Damaso Lujan PA-C. 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 She is she can call around the 5th month to schedule those again. Patient was given Orthovisc injection 4th today for the right knee under sterile technique. She tolerated it well. Band-Aid was applied afterwards. See her back as needed for now - Last Documented On 06/21/2023 10:40AM ; [facility], [facility] Instructions to patient Lose weight Last Documented On 4 10:27AM ; [facility], [facility] Assessments Includes: Assessments from this encounter Findings - Overweight - Last Documented On 06/21/2023 10:40AM ; [facility], [facility] Right knee OA - Last Documented On 06/21/2023 10:40AM ; [facility], [facility] Instructions Includes: Instructions from this encounter Instructions to patient Lose weight Last Documented On 4 10:27AM ; [facility], [facility] Medical Equipment - Implanted Devices Includes: Current Devices No Medical Equipment Recorded Medications Includes: Medications discussed during this encounter and other current Medications Current Medications (continue as prescribed) [facility] Diclofen[facility] Sodium 1% External Gel 06/14/2023 Pro vider: Diagnosis: Last Documented On 4 10:13AM By Amanda Mcpherson ; [facility], [facility] Bystolic 10 MG Oral Tablet 06/07/2023 Provider: Diagnosis: Last Documented On 4 10:34AM By Amanda Mcpherson ; [facility], [facility] Xarelto 10 MG Oral Tablet 06/07/2023 Provider: Diagnosis: Last Documented On 4 10:35AM By Amanda Mcpherson ; [facility], [facility] hydroCHLOROthiazide 12.5 MG Oral Tablet 03/22/2023 P angleder: Diagnosis: Last Documented On 3 11:38AM By Holly Michaels ; [facility], [facility] Lisinopril 10 MG Oral Tablet 02/25/2023 Provider: Diagnosis: Last Documented On 3 11:38AM By Holly Michaels ; [facility], [facility] Nitroglycerin 0.4 MG Sublingual Tablet Sublingual 08/23 Provider: Diagnosis: Last Documented On 4 10:33AM By Amanda Mcpherson ; [facility], [facility] [employer] Thyroid 15 MG Oral Tablet 07/13/2022 Provider: Allyssa Weems Diagnosis: Last Documented On 4 10:34AM By Amanda Mcpherson ; [facility], [facility] Medications Administered Includes: Administered Medications from this encounter No Administered Medications Recorded Vital Signs Includes: Vital Signs from this encounter Vital Name 06/21/2023 10:28A Height (in) 65 Weight (lb) 196 Body Mass Index 32.6 Body Surface Area 2 Pain Level 0 Note: Last Documented: On 06/21/2023 10:28A M ; [facility] Results Includes: Results discussed during this [...] to have less pain with the knee Social History Description Last Updated Caffeine use 05/06/2023 Last Documented On 4 10:27AM ; [facility] Exercising regularly 05/06/2023 Last Documented On 4 10:27AM ; [facility] No recent change in diet 05/06/2023 Last Documented On 4 10:27AM ; [facility] Not a current smoker. 05/06/2023 Last Documented On 4 10:27AM ; [facility] Not using alcohol 05/06/2023 Last Documented On 4 10:27AM ; [facility] Not using drugs 05/06/2023 Last Documented On 4 10:27AM ; [facility] Tobacco non-user 05/06/2023 Last Documented On 4 10:27AM ; [facility] Smoking Status Unknown Procedures and Surgical History Includes: Procedures from this encounter Procedures Code Diagnosis Performing Provider Service Location Service Date DRAIN/INJECT, JOINT/BURSA (RIGHT) Unilateral primary osteoarthritis, right knee Damaso Lujan PA-C [facility] 06/21/2023 Last Documented On 4 11:30AM ; [facility] Orthovisc Hyaluonan, 2cc (RIGHT) [id number] Unilateral primary osteoarthritis, right knee Damaso Lujan PA-C [facility] 06/21/2023 Last Documented On 4 11:30AM ; [facility], [facility] use of tobacco assessment performed 1000F Last Documented On 4 10:27AM ; [facility], [facility] patient screened for future fall risk: documentation of any fall with injury in past year 1100F Last Documented On 4 10:27AM ; [facility] review of medications documented 1160F Last Documented On 4 10:27AM ; [facility], [facility] brace Last Documented On 4 10:27AM ; [facility] Surgical History Last Updated Past Surgical History: tubal ligation Last Documented On 4 10:27AM ; [facility], [facility] History of Past Surgical History: 2022 Last Documented On 4 10:27AM ; [facility] Medical History Includes: Medical History addressed during this encounter Description Last Updated History of Heartburn / Acid Reflux 05/06 Last Documented On 4 10:27AM ; [facility] History of Hypertension 05/06/2023 Last Documented On 4 10:27AM ; [facility] History of Irregular Heartbeat 3 Last Documented On 4 10:27AM ; [facility], [facility] Family History Includes: Family History addressed during this encounter Description Last Updated Family history of systemic hypertension 05/06/2023 Last Documented On 4 10:27AM ; [facility], [facility] Stroke / Seizures 05/06/2023 Last Documented On 4 10:27AM ; [facility], [facility] Maternal grandmother's history of system ic hypertension 05/06/2023 Last Documented On 4 10:27AM ; [facility], [facility] Maternal history of systemic hypertensio n 05/06/2023 Last Documented On 4 10:27AM ; [facility] Paternal grandmother's history of Stroke / Seizures 05/06/2023 Last Documented On 4 10:27AM ; [facility] Paternal history of family history [use for free text] 05/06/2023 Last Documented On 4 10:27AM ; [facility] Paternal history of systemic hypertensio n 05/06/2023 Last Documented On 4 10:27AM ; [facility] Review of Systems Includes: Review of [...] Time Diagnosis COOLEY Injection Damaso Lujan PA-C [facility] 06/21/19 24 10:20AM 10:37AM Overweight Insurance Includes: Active Insurance Policies Plan Name Member ID Group # Subscriber Relationship Effect ricki Dates 1 - Medicare Part B [facility] [id number] Marilee Murphy 2 - [facility] CLAIMS [employer] [id number] Marilee Salvador Self Clinical Notes Includes: Clinical Notes from this encounter * Progress note Date Encounter Last Documented by 06/21/2023 COOLEY Injection Last documented on 06/21/2023; 10:40 AM, Damaso Lujan PA-C; [facility], [facility] Active Problems & Conditions - Joint Pain [...] Tablet Sublingual 14 days, 0 refills - [employer] Thyroid 15 MG Oral Tablet 30 days, [...] needed for now if these help her jail she 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
--- OUTSIDE RECORDS SUMMARY | 2023-09-29 12:20 | XMS_ITS | Clinical Summary ---
Author Name Unknown Address [address] [place] [address] Phone Organization [facility] , [facility] Address [address] [place] [address] Phone Care Team Providers Care Rotary Planer Set Up Operator Name Role Phone Chetan Adkins MD Unavailable [phone] Haresh Becerril MD Primary Care Provider [phone] Reason for Visit and Chief Complaint The Chief Complaint is: Right Knee Pain Problems Includes: Problems addressed during this encounter and other active Problems Current Visit Onset Date Resolved Date Provider Nhan aguilar Status Joint Pain in the Right Knee 05/06/2023 Chetan Adkins MD Active Last Documented On 3 11:37AM ; [facility] Plan of Treatment Fall Risk Assessment: [...] with the patient. - Last Documented On 05/07/2023 10:57AM ; [facility], [facility] Risks and benefits of the injection were [...] start those in 2 to 3 months - Last Documented On 05/07/2023 10:57AM ; [facility], [facility] Instructions to patient Lose weight Last Documented On 3 11:43AM ; [facility] Assessments Includes: Assessments from this encounter Findings - Overweight - Last Documented On 05/07/2023 10:57AM ; [facility] OA both knees right greater than left - Last Documented On 05/07/2023 10:57AM ; [facility] Instructions Includes: Instructions from this encounter Instructions to patient Lose weight Last Documented On 3 11:43AM ; [facility], [facility] Medical Equipment - Implanted Devices Includes: Current Devices No Medical Equipment Recorded Medications Includes: Medications discussed during this encounter and other current Medications Current Medications (continue as prescribed) [facility] Diclofenac Sodium 1% External Gel 06/14/2023 Pro vider: Diagnosis: Last Documented On 4 10:13AM By Amanda Mcpherson ; [facility], [facility] Bystolic 10 MG Oral Tablet 06/07/2023 Provider: Diagnosis: Last Documented On 4 10:34AM By Amanda Mcpherson ; [facility], [facility] Xarelto 10 MG Oral Tablet 06/07/2023 Provider: Diagnosis: Last Documented On 4 10:35AM By Amanda Mcpherson ; [facility], [facility] hydroCHLOROthiazide 12.5 MG Oral Tablet 03/22/2023 P angleder: Diagnosis: Last Documented On 3 11:38AM By Holly Michaels ; [facility], [facility] Lisinopril 10 MG Oral Tablet 02/25/2023 Provider: Diagnosis: Last Documented On 3 11:38AM By Holly Michaels ; [facility], [facility] Nitroglycerin 0.4 MG Sublingual Tablet Sublingual 08/23 Provider: Diagnosis: Last Documented On 4 10:33AM By Amanda Mcpherson ; [facility], [facility] 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 Thyroid 15 MG Oral Tablet 07/13/2022 Provider: Allyssa Weems Diagnosis: Last Documented On 4 10:34AM By Amanda Mcpherson ; [facility], [facility] Medications Administered Includes: Administered Medications from this encounter No Administered Medications Recorded Vital Signs Includes: Vital Signs from this encounter Vital Name 05/06/2023 11:42A Height (in) 65 Weight (lb) 200 Body Mass Index 33.3 Body Surface Area 2 Note: ba Last Documented: On 05/06/2023 11:42A M ; [facility], [facility] Results Includes: Results discussed during this [...] the right knee pain at this time Social History Description Last Updated Caffeine use 05/06/2023 Last Documented On 3 10:57AM ; [facility], [facility] Exercising regularly 05/06/2023 Last Documented On 3 10:57AM ; [facility], [facility] No recent change in diet 05/06/2023 Last Documented On 3 10:57AM ; [facility], [facility] Not a current smoker. 05/06/2023 Last Documented On 3 10:57AM ; [facility], [facility] Not using alcohol 05/06/2023 Last Documented On 3 10:57AM ; [facility], [facility] Not using drugs 05/06/2023 Last Documented On 3 10:57AM ; [facility], [facility] Tobacco non-user 05/06/2023 Last Documented On 3 10:57AM ; [facility] Smoking Status Unknown Procedures and Surgical History Includes: Procedures from this encounter Procedures Code Diagnosis Performing Provider Service Location Service Date DRAIN/INJECT, JOINT/BURSA (RIGHT) Unilateral primary osteoarthritis, right knee Chetan Adkins MD [facility] 05/06/2023 Last Documented On 3 4:40PM ; [facility] Injection, betamethasone acetate 6mg per cc and betamethason J0702 Unilateral primary osteoarthritis, right knee Chetan Adkins MD [facility] 05/06/2023 Last Documented On 3 4:40PM ; [facility] X-RAY EXAM OF KNEE 1 OR 2 VIEWS (RIGHT) 44738 Unilateral primary osteoarthritis, right knee Chetan Adkins MD [facility] 05/06/2023 Last Documented On 3 4:40PM ; [facility] use of tobacco assessment performed 1000F Last Documented On 3 11:43AM ; [facility] patient screened for future fall risk: documentation of any fall with injury in past year 1100F Last Documented On 3 11:43AM ; [facility] review of medications documented 1160F Last Documented On 3 11:43AM ; [facility] an X-ray was performed [id number] Last Documented On 3 12:31PM ; [facility] an MRI was performed 10650 Last Documented On 3 12:31PM ; [facility] brace Last Documented On 3 12:31PM ; [facility] Surgical History Last Updated Past Surgical History: tubal ligation Last Documented On 3 10:57AM ; [facility] History of Past Surgical History: 2022 Last Documented On 3 10:57AM ; [facility] Medical History Includes: Medical History addressed during this encounter Description Last Updated History of Heartburn / Acid Reflux 05/06 Last Documented On 3 10:57AM ; [facility] History of Hypertension 05/06/2023 Last Documented On 3 10:57AM ; [facility] History of Irregular Heartbeat 3 Last Documented On 3 10:57AM ; [facility] Family History Includes: Family History addressed during this encounter Description Last Updated Family history of systemic hypertension 05/06/2023 Last Documented On 3 10:57AM ; [facility] Stroke / Seizures 05/06/2023 Last Documented On 3 10:57AM ; [facility] Maternal grandmother's history of system ic hypertension 05/06/2023 Last Documented On 3 10:57AM ; [facility] Maternal history of systemic hypertensio n 05/06/2023 Last Documented On 3 10:57AM ; [facility] Paternal grandmother's history of Stroke / Seizures 05/06/2023 Last Documented On 3 10:57AM ; [facility] Paternal history of family history [use for free text] 05/06/2023 Last Documented On 3 10:57AM ; [facility] Paternal history of systemic hypertensio n 05/06/2023 Last Documented On 3 10:57AM ; [facility], [facility] Review of Systems Includes: Review of [...] Location Date Check-In Time Check-Out Time Diagnosis Physician Specified Chetan Adkins MD [facility] 05/06/20 11:36AM 11:59AM Overweight Insurance Includes: Active Insurance Policies Plan Name Member ID Group # Subscriber Relationship Effect ricki Dates 1 - Medicare Part B [facility] [id number] Marilee Salvador Self 2 - [facility] CLAIMS DIVISION [id number] Marilee Salvador Self Clinical Notes Includes: Clinical Notes from this encounter * Progress note Date Encounter Last Documented by 05/06/2023 Physician Specified Last omerumejeff norris on 05/07/2023; 10:57 AM, Chetan Adkins MD; [facility], [facility] Active Problems & Conditions - Joint [...] is noted Tests X-rays show grade 4 [id number] changes about the patellofemoral medial compartments of [...]
--- OUTSIDE RECORDS SUMMARY | 2023-09-29 12:20 | XMS_ITS | Clinical Summary ---
Author Name Unknown Address [address] [place] [address] Phone Organization [facility] , [facility] Address [address] [place] [place] [address] Phone Care Team Providers Care Manager Of Pharmacy Name Role Phone Chetan Adkins MD Unavailable [phone] Haresh Becerril MD Primary Care Provider [phone] Reason for Visit and Chief Complaint The Chief Complaint is: Right Knee Pain Problems Includes: Problems addressed during this encounter and other active Problems All Visits Onset Date Resolved Date Provider Condition S tatus Joint Pain in the Right Knee 05/06/2023 Chetan Adkins MD Active Last Documented On 3 11:37AM ; [facility] Plan of Treatment Fall Risk Assessment: This [...] with the patient. - Last Documented On 06/07/2023 11:14AM ; [facility], [facility] Patient was given an Orthovisc injection #2 today for the right knee under sterile technique. She tolerated it well. Band-Aid applied afterwards. She tolerated this well. We will see her back next week for the 3rd injection Patient was seen by myself Damaso Lujan PA-C. - Last Documented On 06/07/2023 11:14AM ; [facility], [facility] Instructions to patient Lose weight Last Documented On 4 10:31AM ; [facility], [facility] Assessments Includes: Assessments from this encounter Findings - Overweight - Last Documented On 06/07/2023 11:14AM ; [facility], [facility] Right knee OA - Last Documented On 06/07/2023 11:14AM ; [facility], [facility] Instructions Includes: Instructions from this encounter Instructions to patient Lose weight Last Documented On 4 10:31AM ; [facility], [facility] Medical Equipment - Implanted Devices Includes: Current Devices No Medical Equipment Recorded Medications Includes: Medications discussed during this encounter and other current Medications Current Medications (continue as prescribed) [facility] Diclofen[facility] Sodium 1% External Gel 06/14/2023 Pro vider: Diagnosis: Last Documented On 4 10:13AM By Amanda Mcpherson ; [facility], [facility] Bystolic 10 MG Oral Tablet 06/07/2023 Provider: Diagnosis: Last Documented On 4 10:34AM By Amanda Mcpherson ; [facility], [facility] Xarelto 10 MG Oral Tablet 06/07/2023 Provider: Diagnosis: Last Documented On 4 10:35AM By Amanda Mcpherson ; [facility], [facility] hydroCHLOROthiazide 12.5 MG Oral Tablet 03/22/2023 P angleder: Diagnosis: Last Documented On 3 11:38AM By Holly Michaels ; [facility], [facility] Lisinopril 10 MG Oral Tablet 02/25/2023 Provider: Diagnosis: Last Documented On 3 11:38AM By Holly Michaels ; [facility], [facility] Nitroglycerin 0.4 MG Sublingual Tablet Sublingual 08/23 Provider: Diagnosis: Last Documented On 4 10:33AM By Amanda Mcpherson ; [facility], [facility] 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 Thyroid 15 MG Oral Tablet 07/13/2022 Provider: Allyssa Weems Diagnosis: Last Documented On 4 10:34AM By Amanda Mcpherson ; [facility], [facility] Medications Administered Includes: Administered Medications from this encounter No Administered Medications Recorded Vital Signs Includes: Vital Signs from this encounter Vital Name 06/07/2023 10:32A Height (in) 65 Weight (lb) 200 Body Mass Index 33.3 Body Surface Area 2 Pain Level 1 Note: Last Documented: On 06/07/2023 10:32A M ; [facility], [facility] Results Includes: Results discussed during this [...] steps. She rates her pain level 1/2. Social History Description Last Updated Caffeine use 05/06/2023 Last Documented On 4 10:31AM ; [facility], [facility] Exercising regularly 05/06/2023 Last Documented On 4 10:31AM ; [facility] No recent change in diet 05/06/2023 Last Documented On 4 10:31AM ; [facility] Not a current smoker. 05/06/2023 Last Documented On 4 10:31AM ; [facility] Not using alcohol 05/06/2023 Last Documented On 4 10:31AM ; [facility] Not using drugs 05/06/2023 Last Documented On 4 10:31AM ; [facility] Tobacco non-user 05/06/2023 Last Documented On 4 10:31AM ; [facility] Smoking Status Unknown Procedures and Surgical History Includes: Procedures from this encounter Procedures Code Diagnosis Performing Provider Service Location Service Date DRAIN/INJECT, JOINT/BURSA (RIGHT) Unilateral primary osteoarthritis, right knee [facility]as[facility] Lujan [facility] 06/[facility]23 Last Documented On 4 6:33AM ; [facility] Orthovisc [place], 2cc (RIGHT) J7324 Unilateral primary osteoarthritis, right knee Damaso Lujan PA-C [facility] [place] 06/07/2023 Last Documented On 4 6:33AM ; [facility], [facility] use of tobacco assessment performed 1000F Last Documented On 4 10:31AM ; [facility], [facility] patient screened for future fall risk: documentation of any fall with injury in past year 1100F Last Documented On 4 10:31AM ; [facility], [facility] review of medications documented 1160F Last Documented On 4 10:31AM ; [facility], [facility] brace Last Documented On 4 10:31AM ; [facility], [facility] Surgical History Last Updated Past Surgical History: tubal ligation Last Documented On 4 10:31AM ; [facility], [facility] History of Past Surgical History: 2022 Last Documented On 4 10:31AM ; [facility], [facility] Medical History Includes: Medical History addressed during this encounter Description Last Updated History of Heartburn / Acid Reflux 05/06 Last Documented On 4 10:31AM ; [facility] History of Hypertension 05/06/2023 Last Documented On 4 10:31AM ; [facility], [facility] History of Irregular Heartbeat 3 Last Documented On 4 10:31AM ; [facility], [facility] Family History Includes: Family History addressed during this encounter Description Last Updated Family history of systemic hypertension 05/06/2023 Last Documented On 4 10:31AM ; [facility] Stroke / Seizures 05/06/2023 Last Documented On 4 10:31AM ; [facility], [facility] Maternal grandmother's history of system ic hypertension 05/06/2023 Last Documented On 4 10:31AM ; [facility] Maternal history of systemic hypertensio n 05/06/2023 Last Documented On 4 10:31AM ; [facility], [facility] Paternal grandmother's history of Stroke / Seizures 05/06/2023 Last Documented On 4 10:31AM ; [facility] Paternal history of family history [use for free text] 05/06/2023 Last Documented On 4 10:31AM ; [facility] Paternal history of systemic hypertensio n 05/06/2023 Last Documented On 4 10:31AM ; [facility] Review of Systems Includes: Review of Systems [...] Time Diagnosis COOLEY Injection Damaso Lujan PA-C [facility] 06/07/19 24 10:19AM 10:45AM Overweight Insurance Includes: Active Insurance Policies Plan Name Member ID Group # Subscriber Relationship Effect ricki Dates 1 - Medicare Part [facility] [id number] Marilee Murphy - [facility] CLAIMS DIVISION [id number] Marilee S Salvador Self Clinical Notes Includes: Clinical Notes from this encounter * Progress note Date Encounter Last Documented by 06/07/2023 COO[place] Injection Last documented on 06/07/2023; 11:14 AM, Damaso Lujan PA-C; [facility], [facility] Active Problems & Conditions - Joint [...] Tablet Sublingual 14 days, 0 refills - 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
--- OUTSIDE RECORDS SUMMARY | 2023-09-29 12:20 | XMS_ITS | Clinical Summary ---
Author Name Unknown Address [address] [place] [address] Phone Organization [facility] , [facility] Address [address] [place] [address] Phone Care Team Providers Care Marketing And Promotions Manager Name Role Phone Jed JEAN BAPTISTE, Chetan Unavailable [phone] Haresh Becerril MD Primary Care Provider [phone] Reason for Visit and Chief Complaint The Chief Complaint is: Right Knee Pain Problems Includes: Problems addressed during this encounter and other active Problems All Visits Onset Date Resolved Date Provider Condition S tatus Joint Pain in the Right Knee 05/06/2023 Chetan Adkins MD Active Last Documented On 3 11:37AM ; [facility] Plan of Treatment Fall Risk Assessment: [...] with the patient. - Last Documented On 05/31/2023 11:04AM ; [facility] Patient was seen by myself Damaso Lujan PA-C. Patient will follow up next week for the 2nd injection. Patient was given Orthovisc injection one today to the right knee under sterile technique. She tolerated it well. Band-Aid applied afterwards. - Last Documented On 05/31/2023 11:04AM ; [facility], [facility] Instructions to patient Lose weight Last Documented On 10:55AM ; [facility], [facility] Assessments Includes: Assessments from this encounter Findings - Overweight - Last Documented On 05/31/2023 11:04AM ; [facility], [facility] Right knee OA - Last Documented On 05/31/2023 11:04AM ; [facility], [facility] Instructions Includes: Instructions from this encounter Instructions to patient Lose weight Last Documented On 4 10:55AM ; [facility], [facility] Medical Equipment - Implanted Devices Includes: Current Devices No Medical Equipment Recorded Medications Includes: Medications discussed during this encounter and other current Medications Discontinued / Stopped on this date on 12/01/2022 Lisinopril 10 MG Oral Tablet Provider: Diagnosis: Last Documented On 4 10:55AM By Amanda Mcpherson ; [facility], [facility] Current Medications (continue as prescribed) [facility] Dic[facility] Sodium 1% External Gel 06/14/2023 Pro vider: Diagnosis: Last Documented On 4 10:13AM By Amanda Mcpherson ; [facility], [facility] Bystolic 10 MG Oral Tablet 06/07/2023 Provider: Diagnosis: Last Documented On 4 10:34AM By Amanda Mcpherson ; [facility], [facility] Xarelto 10 MG Oral Tablet 06/07/2023 Provider: Diagnosis: Last Documented On 4 10:35AM By Amanda Mcpherson ; [facility], [facility] hydroCHLOROthiazide 12.5 MG Oral Tablet 03/22/2023 P rovider: Diagnosis: Last Documented On 3 11:38AM By Holly Michales ; [facility], [facility] Lisinopril 10 MG Oral Tablet 02/25/2023 Provider: Diagnosis: Last Documented On 3 11:38AM By Holly Michaels ; [facility], [facility] Nitroglycerin 0.4 MG Sublingual Tablet Sublingual 08/23 Provider: Diagnosis: Last Documented On 4 10:33AM By Amanda Mcpherson ; [facility], [facility] HOOKER INSPECTOR Thyroid 15 MG Oral Tablet 07/13/2022 Provider: Allyssa Weems Diagnosis: Last Documented On 4 10:34AM By Amanda Mcpherson ; [facility], [facility] Medications Administered Includes: Administered Medications from this encounter No Administered Medications Recorded Vital Signs Includes: Vital Signs from this encounter Vital Name 05/31/2023 10:56A Height (in) 65 Weight (lb) 200 Body Mass Index 33.3 Body Surface Area 2 Pain Level 0 Note: Last Documented: On 05/31/2023 10:56A M ; [facility] Results Includes: Results discussed during this [...] the medial compartment of the right knee Social History Description Last Updated Caffeine use 05/06/2023 Last Documented On 4 10:55AM ; [facility] Exercising regularly 05/06/2023 Last Documented On 4 10:55AM ; [facility] No recent change in diet 05/06/2023 Last Documented On 4 10:55AM ; [facility] Not a current smoker. 05/06/2023 Last Documented On 4 10:55AM ; [facility] Not using alcohol 05/06/2023 Last Documented On 4 10:55AM ; [facility] Not using drugs 05/06/2023 Last Documented On 4 10:55AM ; [facility] Tobacco non-user 05/06/2023 Last Documented On 4 10:55AM ; [facility] Smoking Status Unknown Procedures and Surgical History Includes: Procedures from this encounter Procedures Code Diagnosis Performing Provider Service Location Service Date DRAIN/INJECT, JOINT/BURSA (RIGHT) Unilateral primary osteoarthritis, right knee Damaso Lujan PA-C [facility] 05/31/2023 Last Documented On 4 6:18AM ; [facility] Orthovisc Hyaluonan, 2cc (RIGHT) J7324 Unilateral primary osteoarthritis, right knee Damaso Lujan PA-C [facility] 05/31/2023 Last Documented On 4 6:18AM ; [facility], [facility] use of tobacco assessment performed 1000F Last Documented On 4 10:55AM ; [facility], [facility] patient screened for future fall risk: documentation of any fall with injury in past year 1100F Last Documented On 4 10:55AM ; [facility] review of medications documented 1160F Last Documented On 4 10:55AM ; [facility], [facility] brace Last Documented On 4 10:55AM ; [facility], [facility] Surgical History Last Updated Past Surgical History: tubal ligation Last Documented On 4 10:55AM ; [facility], [facility] History of Past Surgical History: 2022 Last Documented On 4 10:55AM ; [facility], [facility] Medical History Includes: Medical History addressed during this encounter Description Last Updated History of Heartburn / Acid Reflux 05/06 Last Documented On 4 10:55AM ; [facility], [facility] History of Hypertension 05/06/2023 Last Documented On 4 10:55AM ; [facility] History of Irregular Heartbeat 3 Last Documented On 4 10:55AM ; [facility], [facility] Family History Includes: Family History addressed during this encounter Description Last Updated Family history of systemic hypertension 05/06/2023 Last Documented On 4 10:55AM ; [facility], [facility] Stroke / Seizures 05/06/2023 Last Documented On 4 10:55AM ; [facility], [facility] Maternal grandmother's history of system ic hypertension 05/06/2023 Last Documented On 4 10:55AM ; [facility], [facility] Maternal history of systemic hypertensio n 05/06/2023 Last Documented On 4 10:55AM ; [facility] Paternal grandmother's history of Stroke / Seizures 05/06/2023 Last Documented On 4 10:55AM ; [facility] Paternal history of family history [use for free text] 05/06/2023 Last Documented On 4 10:55AM ; [facility] Paternal history of systemic hypertensio n 05/06/2023 Last Documented On 4 10:55AM ; [facility] Review of Systems Includes: Review of [...] Time Diagnosis COOLEY Injection Damaso Lujan PA-C [facility] 05/31/19 24 10:50AM 11:05AM Overweight Insurance Includes: Active Insurance Policies Plan Name Member ID Group # Subscriber Relationship Effect ricki Dates - Medicare Part B [facility] [id number] Marilee Salvador Self 2 - [facility] [employer] [id number] Marilee Salvador Self Clinical Notes Includes: Clinical Notes from this encounter * Progress note Date Encounter Last Documented by 05/31/2023 COOLEY Injection Last documented on 05/31/2023; 11:04 AM, Damaso Lujan PA-C; [facility], [facility] Active Problems & Conditions - Joint [...] to 120 Tests X-rays show grade 4 [id number] changes about the patellofemoral medial compartments of [...]
== END 2023-09-29 23:59 | disposition home or self-care (01) ==
LOC: RT 12:17
PROVIDERS: PCP Family Medicine; Visit Provider Internal Medicine
DX: R00.2 Palpitations (principal); I48.0 Paroxysmal atrial fibrillation
CPT/HCPCS: 93225

== ENCOUNTER → 2023-11-05 08:48 | Outpatient (CLI) | payer MEDICARE, SELFPAY | LOC: SL 08:49 | PROVIDERS: PCP Family Medicine; Visit Provider Internal Medicine | DX: G47.33 Obstructive sleep apnea (adult) (pediatric) (principal); G47.34 Idiopathic sleep related nonobstructive alveolar hypoventilation; G47.36 Sleep related hypoventilation in conditions classified elsewhere; R40.0 Somnolence | CPT/HCPCS: G0399 ==

== ENCOUNTER 2023-11-09 15:20 | Outpatient (CLI) | payer MEDICARE, SELFPAY ==
[2023-11-09 16:52] LABS: Anion Gap 12.4 mEq/L (5-15); Blood Urea Nitrogen 16 mg/dl (7-17); Calcium 9.8 mg/dl (8.4-10.2); Carbon Dioxide 29 mmol/L (22.0-30.0); Chloride 104 mmol/L (98-107); Estimated Glomerular Filt Rate 62 ml/min (>60); GFR (African American) 75 ML/MIN (>60); Glucose 97 mg/dl (74-100); Potassium 4.4 mmoL/L (3.5-5.1); Sodium 141 mmol/L (136-145)
== END 2023-11-09 23:59 | disposition home or self-care (01) ==
LOC: LAB 15:22
PROVIDERS: PCP Family Medicine; Visit Provider Nurse Practitioner Family
DX: I48.0 Paroxysmal atrial fibrillation (principal); I10 Essential (primary) hypertension; R00.2 Palpitations; I47.10 Supraventricular tachycardia, unspecified
CPT/HCPCS: 36415; 80048

== ENCOUNTER 2024-08-28 14:27 | Outpatient (CLI) | payer MEDICARE, SELFPAY ==
[2024-08-28 15:06] LABS: Basophils # 0.1 K/mm3 (0-0.2); Basophils % 0.9 % (0.1-2.0); Eosinophils # 0.2 K/mm3 (0.0-0.4); Eosinophils % 1.8 % (0.1-12.0); Hemoglobin 13.7 g/dL (12.2-16.2); Lymphocytes # 2.1 K/mm3 (0.7-4.5); Lymphocytes % 24.8 % (10-50); Mean Corpuscular HGB Conc 31.9 g/dL (31.8-35.4); Mean Corpuscular Hemoglobin 27.2 pg (27.0-31.2); Mean Corpuscular Volume 85.5 fl (81-99); Mean Platelet Volume 10.8 fl (7.4-10.4); Monocytes # 0.8 K/mm3 (0.1-1.0); Monocytes % 9.2 % (1.7-9.3); Neutrophils # 5.4 K/mm3 (1.8-7.8); Neutrophils % 63.1 % (37.0-80.0); Platelet Count 344 K/mm3 (142-424); Red Blood Count 5.03 M/mm3 (4.20-5.40); Red Cell Distribution Width 15.3 % (11.5-17.5); White Blood Count 8.5 K/mm3 (4.8-10.8)
[2024-08-28 15:28] LABS: Alanine Aminotransferase 19 U/L (12-78); Albumin Level 4.3 g/dl (3.5-5.0); Alkaline Phosphatase 80 U/L (38-126); Anion Gap 14.2 mEq/L (5-15); Aspartate Amino Transferase 26 U/L (14-36); Bilirubin,Direct 0.2 mg/dl (0.0-0.4); Bilirubin,Indirect 0.3 mg/dL (0.0-0.9); Bilirubin,Total 0.5 mg/dl (0.2-1.3); Bilirubin,Unconjugated 0.3 mg/dL (0.0-1.1); Blood Urea Nitrogen 23 mg/dl (7-17); Carbon Dioxide 25 mmol/L (22.0-30.0); Chloride 103 mmol/L (98-107); Chol/HDL Ratio 2.9 (1-3.5); Cholesterol 253 mg/dl (140-200); Estimated Glomerular Filt Rate 71 ml/min (>60); GFR (African American) 85 ML/MIN (>60); Glucose 106 mg/dl (74-100); HDL Cholesterol 86 mg/dl (40-60); Magnesium 1.9 mg/dl (1.6-2.3); Potassium 4.2 mmoL/L (3.5-5.1); Sodium 138 mmol/L (136-145); Total Protein,Serum 7.5 g/dl (6.3-8.2); Triglycerides 91 mg/dl (30-150); VLDL Cholesterol 18 mg/dL (0-40)
[2024-08-28 15:38] LABS: Direct LDL Cholesterol 122.17 mg/dL (100-129)
[2024-08-28 16:00] LABS: Thyroid Stimulating Hormone 3.38 uIU/mL (0.465-4.68)
[2024-08-28 17:19] LABS: Free T4 (Free Thyroxine) 1.28 ng/dl (0.78-2.19)
--- OUTSIDE RECORDS SUMMARY | 2024-08-31 20:39 | XMS_ITS | Clinical Summary ---
Author Organization [facility] , [facility] Address [address] [place] [address] Phone Care Team Providers Care Data Warehouse Consultant Name Role Phone Jed JEAN BAPTISTE, Chetan Unavailable [phone] Haresh Becerril MD Primary Care Provider [phone] Reason for Visit and Chief Complaint The Chief Complaint is: Right shoulder/left hip pain Problems Includes: Problems addressed during this encounter and other active Problems Current Visit Onset Date Resolved Date Provider Conditio n Status Joint Pain, Localized in the Right Shoulder 06/20/2024 Damaso Lujan PA-C Active Last Documented On 5 1:37PM ; [facility] Past Visits Onset Date Resolved Date Provider Condition Status Joint Pain in the Right Knee 05/06/2023 Chetan Adkins MD Active Last Documented On 3 11:37AM ; [facility] Plan of Treatment Fall Risk Assessment: [...] with the patient. - Last Documented On 06/28/2024 12:54PM ; [facility] Patient was seen by myself Damaso Lujan PA-C. Patient will follow up 6 weeks we are going to do some physical therapy with both of these and try a cortisone injection for the left hip trochanteric bursa. We had patient was given a left hip trochanteric bursa injection under sterile technique 4 cc of lidocaine and 1 cc of betamethasone. She tolerated that well in terms of the shoulder and hip she was asking if it is okay to see this osteopath who does craniosacral therapy and I said that is okay - Last Documented On 06/28/2024 12:54PM ; [facility], [facility] Instructions to patient Lose weight Last Documented On 5 1:37PM ; [facility], [facility] Assessments Includes: Assessments from this encounter Findings - Overweight - Last Documented On 06/28/2024 12:54PM ; [facility] Left hip pain likely aggravation of some hip bursitis and right shoulder rotator cuff strain - Last Documented On 06/28/2024 12:54PM ; [facility], [facility] Instructions Includes: Instructions from this encounter Instructions to patient Lose weight Last Documented On 5 1:37PM ; [facility], [facility] Medical Equipment - Implanted Devices Includes: Current Devices No Medical Equipment Recorded Medications Includes: Medications discussed during this encounter and other current Medications Current Medications (continue as prescribed) Metoprolol Succinate ER 50 M G Oral Tablet Extended Release 24 Hour 06/19/2024 Provider: Diagnosis: Last Documented On 5 1:37PM By Royal Hua ; [facility], [facility] hydroCHLOROthiazide 12.5 MG Oral Tablet 06/02/2024 P rovider: Diagnosis: Last Documented On 5 1:37PM By Royal Hua ; [facility], [facility] Diclofen[facility] Sodium 1% External Gel 06/14/2023 Pro vider: Diagnosis: Last Documented On 4 10:13AM By Amanda Mcpherson ; [facility], [facility] Bystolic 10 MG Oral Tablet 06/07/2023 Provider: Diagnosis: Last Documented On 4 10:34AM By Amanda Mcpherson ; [facility], [facility] Xarelto 10 MG Oral Tablet 06/07/2023 Provider: Diagnosis: Last Documented On 4 10:35AM By Amanda Mcpherson ; [facility], [facility] hydroCHLOROthiazide 12.5 MG Oral Tablet 03/22/2023 P rovider: Diagnosis: Last Documented On 3 11:38AM By Holly Michaels ; [facility], [facility] Lisinopril 10 MG Oral Tablet 02/25/2023 Provider: Diagnosis: Last Documented On 3 11:38AM By Holly Michaels ; [facility], [facility] Nitroglycerin 0.4 MG Sublingual Tablet Sublingual 08/23 Provider: Diagnosis: Last Documented On 4 10:33AM By Amanda Mcpherson ; [facility], [facility] METALLURGICAL TECHNICIAN Thyroid 15 MG Oral Tablet 07/13/2022 Provider: Allyssa Weems Diagnosis: Last Documented On 4 10:34AM By Amanda Mcpherson ; [facility], [facility] Medications Administered Includes: Administered Medications from this encounter No Administered Medications Recorded Vital Signs Includes: Vital Signs from this encounter Vital Name 06/20/2024 01:52P Height (in) 66 Weight (lb) 200 Body Mass Index 32.3 Body Surface Area 2 Pain Level 4 Last Documented: On 06/20/2024 1:52PM ; [facility], [facility] Results Includes: Results discussed during this encounter No Results Recorded For Specified Dates History of Present Illness Includes: History of Present Illness from this encounter RAJ Salvador is a 74 year old female. - Symptoms pain better: propping at night, heat pain worse: reaching forward, raising arm. - Allergy list reviewed - Problem list reviewed - Medication list reviewed - Previous history of new onset pain Injury is not work related or an automotive accident. 04/17/24 fell backwards down steps - Sharp pain Symptoms - Pain is dull, aching - Patient pain level from 1-10: 4 - No previous treatment. Patient is here today complaints of right shoulder pain and left hip pain she had a fall April 17, 2024 when she was trying to go up a step and she had some weakness in 1 of her legs and fell landing on the right side did not land on the left side not complaining of any pain in the left groin. She does have a history of bursitis in his left lower extremity. The shoulder bothers her mainly at night it seems to be in the posterior aspect of the shoulder no limitation with motion she is right-hand dominant no previous surgery on the shoulder or the left hip. No groin pain with the left hip Social History Description Last Updated Caffeine use 05/06/2023 Last Documented On 5 1:37PM ; [facility] Exercising regularly 05/06/2023 Last Documented On 5 1:37PM ; [facility] No recent change in diet 05/06/2023 Last Documented On 5 1:37PM ; [facility] Not a current smoker. 05/06/2023 Last Documented On 5 1:37PM ; [facility] Not using alcohol 05/06/2023 Last Documented On 5 1:37PM ; [facility] Not using drugs 05/06/2023 Last Documented On 5 1:37PM ; [facility] Tobacco non-user 05/06/2023 Last Documented On 5 1:37PM ; [facility] Smoking Status Unknown Procedures and Surgical History Includes: Procedures from this encounter Procedures Code Diagnosis Performing Provider Service Location Service Date DRAIN/INJECT, JOINT/BURSA (LEFT) Other bursitis of hip, left hip Damaso Lujan PA-C [facility] 06/20/2024 Last Documented On 5 3:04PM ; [facility] Injection, betamethasone acetate 6mg per cc and betamethason J0702 Other bursitis of hip, left hip Damaso Lujan PA-C [facility] 06/20/2024 Last Documented On 5 3:04PM ; [facility] AP PELVIS w/ 1 VIEW HIP (LEFT) 14508 Other bursitis of hip, left hip Damaso Lujan PA-C [facility] 06/20/2024 Last Documented On 5 3:04PM ; [facility] X-RAY EXAM OF SHOULDER 2-3 VIEWS (RIGHT) 60324 Strain of musc/tend the rotator cuff of right shoulder, init Damaso Lujan PA-C [facility] 06/20/2024 Last Documented On 5 3:04PM ; [facility] use of tobacco assessment performed 1000F Last Documented On 5 1:37PM ; [facility] patient screened for future fall risk: documentation of any fall with injury in past year 1100F Last Documented On 5 1:37PM ; [facility] review of medications documented 1160F Last Documented On 5 1:37PM ; [facility] brace Last Documented On 5 1:37PM ; [facility] Surgical History Last Updated Past Surgical History: tubal ligation Last Documented On 5 1:37PM ; [facility] History of Past Surgical History: 2022 Last Documented On 5 1:37PM ; [facility] Medical History Includes: Medical History addressed during this encounter Description Last Updated History of Heartburn / Acid Reflux 05/06 Last Documented On 5 1:37PM ; [facility] History of Hypertension 05/06/2023 Last Documented On 5 1:37PM ; [facility] History of Irregular Heartbeat 3 Last Documented On 5 1:37PM ; [facility] Family History Includes: Family History addressed during this encounter Description Last Updated Family history of systemic hypertension 05/06/2023 Last Documented On 5 1:37PM ; [facility] Stroke / Seizures 05/06/2023 Last Documented On 5 1:37PM ; [facility] Maternal grandmother's history of system ic hypertension 05/06/2023 Last Documented On 5 1:37PM ; [facility] Maternal history of systemic hypertensio n 05/06/2023 Last Documented On 5 1:37PM ; [facility] Paternal grandmother's history of Stroke / Seizures 05/06/2023 Last Documented On 5 1:37PM ; [facility] Paternal history of family history [use for free text] 05/06/2023 Last Documented On 5 1:37PM ; [facility] Paternal history of systemic hypertensio n 05/06/2023 Last Documented On 5 1:37PM ; [facility] Review of Systems Includes: Review [...] No heartburn and no abdominal pain. No Indigestion, no Peptic Ulcer, no GI Stomach Bleed, and no Ulcers. Acid Reflux. Endocrine: No hot flashes, no muscle weakness, [...] Location Date Check-In Time Check-Out Time Diagnosis NEW PROBLEM/EST PT Damaso Lujan PA-C [facility] 06/20/19 25 1:35PM 2:32PM Overweight Insurance Includes: Active Insurance Policies Plan Name Member ID Group # Subscriber Relationship Effect ricki Dates 1 - Medicare Part B [facility] [id number] Marilee Murphy 2 - [facility] [employer] [id number] Marilee Murphy Clinical Notes Includes: Clinical Notes from this encounter * Progress note Date Encounter Last Documented by 06/20/2024 NEW PROBLEM/EST PT Last document ed on 06/28/2024; 12:54 PM, Damaso Lujan PA-C; [facility] Active Problems & Conditions - Joint Pain in the Right Knee - Joint Pain, Localized in the Right Shoulder Chief Complaint The Chief Complaint is: Right shoulder/left hip pain. Referred Here Referred by self. History of Present Illness Marilee Salvador is a 74 year old female. - Symptoms pain better: propping at night, heat pain worse: reaching forward, raising arm. - Allergy list reviewed - Problem list reviewed - Medication list reviewed - Previous history of new onset pain Injury is not work related or an automotive accident. 04/17/24 fell backwards down steps - Sharp pain Symptoms - Pain is dull, aching - Patient pain level from 1-10: 4 - No previous treatment. Patient is here today complaints of right shoulder pain and left hip pain she had a fall April 17, 2024 when she was trying to go up a step and she had some weakness in 1 of her legs and fell landing on the right side did not land on the left side not complaining of any pain in the left groin. She does have a history of bursitis in his left lower extremity. The shoulder bothers her mainly at night it seems to be in the posterior aspect of the shoulder no limitation with motion she is right-hand dominant no previous surgery on the shoulder or the left hip. No groin pain with the left hip Current Medication - Bystolic 10 MG Oral Tablet 0 days, 0 refills - [facility] Dicl[facility] Sodium 1% External Gel 0 days, 0 refills - hydroCHLOROthiazide 12.5 MG Oral Tablet 90 days, 0 refills - hydroCHLOROthiazide 12.5 MG Oral Tablet 90 days, 0 refills - Lisinopril 10 MG Oral Tablet 90 days, 0 refills - Metoprolol Succinate ER 50 MG Oral Tablet Extended Release 24 Hour 90 days, 0 refills - Nitroglycerin 0.4 MG Sublingual Tablet Sublingual 14 days, 0 refills - METALLURGICAL TECHNICIAN Thyroid 15 MG Oral Tablet 30 days, [...] No heartburn and no abdominal pain. No Indigestion, no Peptic Ulcer, no GI Stomach Bleed, and no Ulcers. Acid Reflux. Endocrine: No hot flashes, no muscle weakness, [...] allergic reaction. Physical Findings - Vitals taken 06/20/2024 01:52 pm Height 66 in Weight 200 lbs Body Mass Index 32.3 kg/m2 Body Surface Area 2 m2 Pain Level 4 Left hip has some tenderness over the trochanteric bursa no pain with the left hip range motion Right shoulder has some tenderness over the posterior cuff insertion she has full motion with the right shoulder Right shoulder strength 4+ out of 5 for supraspinatus infraspinatus teres minor subscapularis Negative lift-off drop-arm Tests Three views right shoulder were negative for any fracture and two views left hip were negative for any fracture 06/20/2024 Assessment - Overweight Left hip pain likely aggravation of some hip bursitis and right shoulder rotator cuff strain Previous Tests Basic Management Procedures And Services: [...] Damaso Lujan PA-C. Patient will follow up 6 weeks we are going to do some physical therapy with both of these and try a cortisone injection for the left hip trochanteric bursa. We had patient was given a left hip trochanteric bursa injection under sterile technique 4 cc of lidocaine and 1 cc of betamethasone. She tolerated that well in terms of the shoulder and hip she was asking if it is okay to see this osteopath who does craniosacral therapy and I said that is okay Notes This dictation was done with voice recognition software and may contain errors and omissions. Practice Management Use of tobacco assessment performed and patient screened for future fall risk documentation of any fall with injury in past year Review of medications documented. Care Team - Haresh Becerril MD
--- OUTSIDE RECORDS SUMMARY | 2024-08-31 20:39 | XMS_ITS | Clinical Summary ---
Author Organization [facility] , [facility] Address [address] [place] [address] Phone Care Team Providers Care Psychological Assistant Name Role Phone Jed JEAN BAPTISTE, Chetan Unavailable [phone] Haresh Becerril MD Primary Care Provider [phone] Reason for Visit and Chief Complaint The Chief Complaint is: Right Knee Pain Problems Includes: Problems addressed during this encounter and other active Problems All Visits Onset Date Resolved Date Provider Condition S tatus Joint Pain, Localized in the Right Shoulder 06/20/2024 Damaso Lujan PA-C Active Last Documented On 5 1:37PM ; [facility] Joint Pain in the Right Knee 05/06/2023 Chetan Adkins MD Active Last Documented On 3 11:37AM ; [facility] Plan of Treatment Fall Risk [...] - Last Documented On 05/31/2023 11:04AM ; [facility] Patient was seen by myself Damaso Lujan PA-C. Patient will follow up next week for the 2nd injection. Patient was given Orthovisc injection one today to the right knee under sterile technique. She tolerated it well. Band-Aid applied afterwards. - Last Documented On 05/31/2023 11:04AM ; [facility] Instructions to patient Lose weight Last Documented On 4 10:55AM ; [facility], [facility] Assessments Includes: Assessments from this encounter Findings - Overweight - Last Documented On 05/31/2023 11:04AM ; [facility], [facility] Right knee OA - Last Documented On 05/31/2023 11:04AM ; [facility], [facility] Instructions Includes: Instructions from this encounter Instructions to patient Lose weight Last Documented On 4 10:55AM ; [facility], [facility] Medical Equipment - Implanted Devices Includes: Current Devices No Medical Equipment Recorded Medications Includes: Medications discussed during this encounter and other current Medications Discontinued / Stopped on this date on 12/01/2022 Lisinopril 10 MG Oral Tablet Provider: Diagnosis: Last Documented On 4 10:55AM By Amanda Mcpherson ; [facility], [facility] Current Medications (continue as prescribed) Metoprolol Succinate ER 50 M G Oral Tablet Extended Release 24 Hour 06/19/2024 Provider: Diagnosis: Last Documented On 5 1:37PM By Royal Hua ; [facility], [facility] hydroCHLOROthiazide 12.5 MG Oral Tablet 06/02/2024 P rovider: Diagnosis: Last Documented On 5 1:37PM By Royal Hua ; [facility], [facility] Diclofenac Sodium 1% External Gel 06/14/2023 Pro vider: Diagnosis: Last Documented On 4 10:13AM By Amanda Mcpherson ; [facility] Bystolic 10 MG Oral Tablet 06/07/2023 Provider: Diagnosis: Last Documented On 4 10:34AM By Amanda Mcpherson ; [facility], [facility] Xarelto 10 MG Oral Tablet 06/07/2023 Provider: Diagnosis: Last Documented On 4 10:35AM By Amanda Mcpherson ; [facility], [facility] hydroCHLOROthiazide 12.5 MG Oral Tablet 03/22/2023 P rovider: Diagnosis: Last Documented On 3 11:38AM By Holly Michaels ; [facility], [facility] Lisinopril 10 MG Oral Tablet 02/25/2023 Provider: Diagnosis: Last Documented On 3 11:38AM By Holly Michaels ; [facility], [facility] Nitroglycerin 0.4 MG Sublingual Tablet Sublingual 08/23 Provider: Diagnosis: Last Documented On 4 10:33AM By Amanda Mcpherson ; [facility], [facility] [employer] Thyroid 15 MG Oral Tablet 07/13/2022 Provider: Allyssa Weems Diagnosis: Last Documented On 4 10:34AM By Amanda Mcpherson ; [facility], [facility] Medications Administered Includes: Administered Medications from this encounter No Administered Medications Recorded Vital Signs Includes: Vital Signs from this encounter Vital Name 05/31/2023 10:56A Height (in) 65 Weight (lb) 200 Body Mass Index 33.3 Body Surface Area 2 Pain Level 0 Note: lc Last Documented: On 05/31/2023 10:56A M ; [facility] Results Includes: Results discussed during this encounter [...] for her knee tends to bother her. Dve pain since being on the medial compartment of the right knee Social History Description Last Updated Caffeine use 05/06/2023 Last Documented On 4 10:55AM ; [facility], [facility] Exercising regularly 05/06/2023 Last Documented On 4 10:55AM ; [facility], [facility] No recent change in diet 05/06/2023 Last Documented On 4 10:55AM ; [facility], [facility] Not a current smoker. 05/06/2023 Last Documented On 4 10:55AM ; [facility], [facility] Not using alcohol 05/06/2023 Last Documented On 4 10:55AM ; [facility], [facility] Not using drugs 05/06/2023 Last Documented On 4 10:55AM ; [facility] Tobacco non-user 05/06/2023 Last Documented On 4 10:55AM ; [facility] Smoking Status Unknown Procedures and Surgical History Includes: Procedures from this encounter Procedures Code Diagnosis Performing Provider Service L ocation Service Date use of tobacco assessment performed 1000F Last Documented On 4 10:55AM ; [facility], [facility] patient screened for future fall risk: documentation of any fall with injury in past year 1100F Last Documented On 4 10:55AM ; [facility] review of medications documented 1160F Last Documented On 4 10:55AM ; [facility] brace Last Documented On 4 10:55AM ; [facility], [facility] Surgical History Last Updated Past Surgical History: tubal ligation Last Documented On 4 10:55AM ; [facility], [facility] History of Past Surgical History: 2022 Last Documented On 4 10:55AM ; [facility], [facility] Medical History Includes: Medical History addressed during this encounter Description Last Updated History of Heartburn / Acid Reflux 05/06 Last Documented On 4 10:55AM ; [facility], [facility] History of Hypertension 05/06/2023 Last Documented On 4 10:55AM ; [facility], [facility] History of Irregular Heartbeat 3 Last Documented On 4 10:55AM ; [facility] Family History Includes: Family History addressed during this encounter Description Last Updated Family history of systemic hypertension 05/06/2023 Last Documented On 4 10:55AM ; [facility], [facility] Stroke / Seizures 05/06/2023 Last Documented On 4 10:55AM ; [facility], [facility] Maternal grandmother's history of system ic hypertension 05/06/2023 Last Documented On 4 10:55AM ; [facility], [facility] Maternal history of systemic hypertensio n 05/06/2023 Last Documented On 4 10:55AM ; [facility] Paternal grandmother's history of Stroke / Seizures 05/06/2023 Last Documented On 4 10:55AM ; [facility] Paternal history of family history [use for free text] 05/06/2023 Last Documented On 4 10:55AM ; [facility] Paternal history of systemic hypertensio n 05/06/2023 Last Documented On 4 10:55AM ; [facility] Review of Systems Includes: Review [...] Time Diagnosis [facility] 10:50AM 11:05AM Overweight Insurance Includes: Active Insurance Policies Plan Name Member ID Group # Subscriber Relationship Effect ricki Dates 1 - Medicare Part B [facility] [id number] Marilee Salvador Self 2 - [employer] [facility] [employer]S [employer] [id number] Marilee Salvador Self Clinical Notes Includes: Clinical Notes from this encounter * Progress note Date Encounter Last Documented by 05/31/2023 COOLEY Injection Last documented on 05/31/2023; 11:04 AM, Damaso Lujan PA-C; [facility], [facility] Active Problems & Conditions - Joint [...] to 120 Tests X-rays show grade 4 [id number] changes about the patellofemoral medial compartments of [...]
--- OUTSIDE RECORDS SUMMARY | 2024-08-31 20:39 | XMS_ITS ---
Author Organization [facility] , [facility] Address [address] [place] [address] Phone Care Team Providers Care Lens Coating Technician Name Role Phone Jed JEAN BAPTISTE, Chetan Unavailable [phone] Haresh Becerril MD Primary Care Provider [phone] Problems Includes: Active, inactive, and resolved Problems All Visits Onset Date Resolved Date Provider Condition S tatus Joint Pain, Localized in the Right Shoulder 06/20/2024 Damaso Lujan PA-C Active Last Documented On 5 1:37PM ; [facility], [facility] Joint Pain in the Right Knee 05/06/2023 Chetan Adkins MD Active Last Documented On 3 11:37AM ; [facility], [facility] Plan of Treatment Instructions to patient Lose weight Last Documented On 5 1:37PM ; [facility] Lose weight Last Documented On 4 10:27AM ; [facility] Lose weight Last Documented On 4 10:14AM ; [facility], [facility] Lose weight Last Documented On 4 10:31AM ; [facility] Lose weight Last Documented On 4 10:55AM ; [facility], [facility] Lose weight Last Documented On 3 11:43AM ; [facility], [facility] Assessments Includes: Assessments for all patient encounters Findings Encounter Date Overweight NEW PROBLEM/EST PT with Damaso Lujan PA-C 06/20/2024 Last Documented On 5 12:54PM ; [facility], [facility] Overweight COOLEY Injection with Damaso Lujan PA-C 06/21/2023 Last Documented On 4 10:40AM ; [facility] Overweight COOLEY Injection with Damaso Lujan PA-C 06/14/2023 Last Documented On 4 10:41AM ; [facility] Overweight COOLEY Injection with Damaso Lujan PA-C 06/07/2023 Last Documented On 4 11:14AM ; [facility] Overweight COOLEY Injection with Damaso Lujan PA-C 05/31/2023 Last Documented On 4 11:04AM ; [facility], [facility] Overweight Physician Specified with Chetan Adkins MD 05/06/2023 Last Documented On 3 10:57AM ; [facility], [facility] Instructions Includes: Instructions for all patient encounters Instructions to patient Lose weight Last Documented On 5 1:37PM ; [facility], [facility] Lose weight Last Documented On 4 10:27AM ; [facility], [facility] Lose weight Last Documented On 4 10:14AM ; [facility] Lose weight Last Documented On 4 10:31AM ; [facility] Lose weight Last Documented On 4 10:55AM ; [facility] Lose weight Last Documented On 3 11:43AM ; [facility], [facility] Medical Equipment - Implanted Devices Includes: Current and historical Devices No Medical Equipment Recorded Medications Includes: Current and historical Medications Current Medications (continue as prescribed) Metoprolol Succinate ER 50 M G Oral Tablet Extended Release 24 Hour 06/19/2024 Provider: Diagnosis: Last Documented On 5 1:37PM By Royal Hua ; [facility], [facility] hydroCHLOROthiazide 12.5 MG Oral Tablet 06/02/2024 P angleder: Diagnosis: Last Documented On 5 1:37PM By Royal Hua ; [facility], [facility] Diclofenac Sodium 1% External Gel 06/14/2023 Pro vider: Diagnosis: Last Documented On 4 10:13AM By Amanda Mcpherson ; [facility], [facility] Bystolic 10 MG Oral Tablet 06/07/2023 Provider: Diagnosis: Last Documented On 4 10:34AM By Amanda Mcpherson ; [facility], [facility] Xarelto 10 MG Oral Tablet 06/07/2023 Provider: Diagnosis: Last Documented On 4 10:35AM By Amanda Mcpherson ; [facility] hydroCHLOROthiazide 12.5 MG Oral Tablet 03/22/2023 P rovider: Diagnosis: Last Documented On 3 11:38AM By Holly Michaels ; [facility], [facility] Lisinopril 10 MG Oral Tablet 02/25/2023 Provider: Diagnosis: Last Documented On 3 11:38AM By Holly Michaels ; [facility] Nitroglycerin 0.4 MG Sublingual Tablet Sublingual 08/23 Provider: Diagnosis: Last Documented On 4 10:33AM By Amanda Mcpherson ; [facility], [facility] [employer]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 Thyroid 15 MG Oral Tablet 07/13/2022 Provider: Allyssa Weems Diagnosis: Last Documented On 4 10:34AM By Amanda Mcpherson ; [facility], [facility] Past Medications on file Bisoprolol Fumarate 10 MG Oral Tablet 12/14/2022 - Provider: Diagnosis: Last Documented On 4 10:13AM By Amanda Mcpherson ; [facility], [facility] Lisinopril 10 MG Oral Tablet 12/01/2022 - 05/31/2023 P rovider: Diagnosis: Last Documented On 4 10:55AM By Amanda Mcpherson ; [facility], [facility] Clotrimazole 1% External Cream 10/11/2022 - 06/14/2023 Provider: Diagnosis: Last Documented On 4 10:13AM By Amanda Mcpherson ; [facility] Medications Administered Includes: Administered Medications in patient's chart No Administered Medications Recorded Vital Signs Includes: Vital Signs from 09/01/2023 through 08/31/2024 Vital Name 06/20/2024 01:52P Height (in) 66 Weight (lb) 200 Body Mass Index 32.3 Body Surface Area 2 Pain Level 4 Last Documented: On 06/20/2024 1:52PM ; [facility] Results Includes: Results from 09/01/2023 through 08/31/2024 No Results Recorded For Specified Dates History of Present Illness History of Present Illness not supported for this document type No History of Present Illness Recorded Social History Description Last Updated Caffeine use 05/06/2023 Last Documented On 3 10:57AM ; [facility], [facility] Exercising regularly 05/06/2023 Last Documented On 3 10:57AM ; [facility] No recent change in diet 05/06/2023 Last Documented On 3 10:57AM ; [facility] Not a current smoker. 05/06/2023 Last Documented On 3 10:57AM ; [facility] Not using alcohol 05/06/2023 Last Documented On 3 10:57AM ; [facility] Not using drugs 05/06/2023 Last Documented On 3 10:57AM ; [facility] Tobacco non-user 05/06/2023 Last Documented On 3 10:57AM ; [facility] Smoking Status Unknown Procedures and Surgical History Includes: Procedures from 09/01/2023 through 08/31/2024 Procedures Code Diagnosis Performing Provider Service Location Service Date DRAIN/INJECT, JOINT/BURSA (LEFT) Other bursitis of hip, left hip Damaso Lujan PA-C [facility] 06/20/2024 Last Documented On 5 3:04PM ; [facility] X-RAY EXAM OF SHOULDER 2-3 VIEWS (RIGHT) 14389 Strain of musc/tend the rotator cuff of right shoulder, init Damaso Lujan PA-C [facility] 06/20/2024 Last Documented On 5 3:04PM ; [facility] AP PELVIS w/ 1 VIEW HIP (LEFT) [id number] Other bursitis of hip, left hip Damaso Lujan PA-C [facility] 06/20/2024 Last Documented On 5 3:04PM ; [facility] Injection, betamethasone acetate 6mg per cc and betamethason J0702 Other bursitis of hip, left hip Damaso Lujan PA-C [facility] 06/20/2024 Last Documented On 5 3:04PM ; [facility], [facility] Surgical History Last Updated Past Surgical History: tubal ligation Last Documented On 3 10:57AM ; [facility], [facility] History of Past Surgical History: 2022 Last Documented On 3 10:57AM ; [facility], [facility] Medical History Includes: Medical History in patient's chart Description Last Updated History of Heartburn / Acid Reflux 05/06 Last Documented On 3 10:57AM ; [facility], [facility] History of Hypertension 05/06/2023 Last Documented On 3 10:57AM ; [facility], [facility] History of Irregular Heartbeat 3 Last Documented On 3 10:57AM ; [facility], [facility] Family History Includes: Family History in patient's chart Description Last Updated Family history of systemic hypertension 05/06/2023 Last Documented On 3 10:57AM ; [facility], [facility] Stroke / Seizures 05/06/2023 Last Documented On 3 10:57AM ; [facility], [facility] Maternal grandmother's history of system ic hypertension 05/06/2023 Last Documented On 3 10:57AM ; [facility], [facility] Maternal history of systemic hypertensio n 05/06/2023 Last Documented On 3 10:57AM ; [facility], [facility] Paternal grandmother's history of Stroke / Seizures 05/06/2023 Last Documented On 3 10:57AM ; [facility], [facility] Paternal history of family history [use for free text] 05/06/2023 Last Documented On 3 10:57AM ; [facility], [facility] Paternal history of systemic hypertensio n 05/06/2023 Last Documented On 3 10:57AM ; [facility], [facility] Review of Systems Review of Systems not supported for this document type No Review of Systems Recorded Mental Status Description No anxiety Functional Status No Functional Status Recorded Physical Exam Physical Exam not supported for this document type No Physical Exam Recorded Allergies Includes: Active, inactive, and resolved Allergies No Known Allergies Encounters Includes: Encounters from 09/01/2023 through 08/31/2024 Encounter Provider Location Date Check-In Time Check-Out Time Diagnosis NEW PROBLEM/EST PT Damaso Lujan PA-C [facility] 06/20/19 1:35PM 2:32PM Overweight Insurance Includes: Active Insurance Policies Plan Name Member ID Group # Subscriber Relationship Effect ricki Dates 1 - Medicare Part B [facility] [id number] Marilee Salvador Self 2 - [facility] CLAIMS [employer]ISION [id number] Marilee Salvador Self Clinical Notes Includes: Signed Clinical Notes starting from 05/07/2022 * Progress note Date Encounter Last Documented by 06/20/2024 NEW PROBLEM/EST PT Last document ed on 06/28/2024; 12:54 PM, Damaso Lujan PA-C; [facility], [facility] Active Problems & [...] Tablet Sublingual 14 days, 0 refills - [employer] Thyroid 15 MG Oral Tablet 30 days, [...]
--- OUTSIDE RECORDS SUMMARY | 2024-08-31 20:39 | XMS_ITS | Clinical Summary ---
Author Organization [facility] , [facility] Address [address] [address] Phone Care Team Providers Care Ski Top Trimmer Name Role Phone Jed JEAN BAPTISTE, Chetan Unavailable [phone] Haresh Becerril MD Primary Care Provider [phone] Reason for Visit and Chief Complaint The Chief Complaint is: Right Knee Pain Problems Includes: Problems addressed during this encounter and other active Problems All Visits Onset Date Resolved Date Provider Condition S tatus Joint Pain, Localized in the Right Shoulder 06/20/2024 Damaso Lujan PA-C Active Last Documented On 5 1:37PM ; [facility] Joint Pain in the Right Knee 05/06/2023 Chetan Adkins MD Active Last Documented On 3 11:37AM ; [facility] Plan of Treatment Fall Risk Assessment: [...] - Last Documented On 06/21/2023 10:40AM ; [facility] Patient was seen by myself Damaso Lujan PA-C. Patient will follow up as needed for now if these help her residential she can do these again in 6 months. She is she can call around the 5th month to schedule those again. Patient was given Orthovisc injection 4th today for the right knee under sterile technique. She tolerated it well. Band-Aid was applied afterwards. See her back as needed for now - Last Documented On 06/21/2023 10:40AM ; [facility], [facility] Instructions to patient Lose weight Last Documented On 4 10:27AM ; [facility], [facility] Assessments Includes: Assessments from this encounter Findings - Overweight - Last Documented On 06/21/2023 10:40AM ; [facility] Right knee OA - Last Documented On 06/21/2023 10:40AM ; [facility], [facility] Instructions Includes: Instructions from this encounter Instructions to patient Lose weight Last Documented On 4 10:27AM ; [facility], [facility] Medical Equipment - Implanted Devices Includes: Current Devices No Medical Equipment Recorded Medications Includes: Medications discussed during this encounter and other current Medications Current Medications (continue as prescribed) Metoprolol Succinate ER 50 M G Oral Tablet Extended Release 24 Hour 06/19/2024 Provider: Diagnosis: Last Documented On 5 1:37PM By Royal Hua ; [facility], [facility] hydroCHLOROthiazide 12.5 MG Oral Tablet 06/02/2024 P rovider: Diagnosis: Last Documented On 5 1:37PM By Royal Hua ; [facility], [facility] Diclofenac Sodium 1% External Gel 06/14/2023 Pro vider: Diagnosis: Last Documented On 4 10:13AM By Amanda Mcpherson ; [facility], [facility] Bystolic 10 MG Oral Tablet 06/07/2023 Provider: Diagnosis: Last Documented On 4 10:34AM By Amanda Mcpherson ; [facility], [facility] Xarelto 10 MG Oral Tablet 06/07/2023 Provider: Diagnosis: Last Documented On 4 10:35AM By Amanda Mcpherson ; [facility], [facility] hydroCHLOROthiazide 12.5 MG Oral Tablet 03/22/2023 P rovider: Diagnosis: Last Documented On 3 11:38AM By Holly Michaels ; [facility], [facility] Lisinopril 10 MG Oral Tablet 02/25/2023 Provider: Diagnosis: Last Documented On 3 11:38AM By Holly Michaels ; [facility], [facility] Nitroglycerin 0.4 MG Sublingual Tablet Sublingual 08/23 Provider: Diagnosis: Last Documented On 4 10:33AM By Amanda Mcpherson ; [facility] [employer] Thyroid 15 MG Oral Tablet 07/13/2022 Provider: Allyssa Weems Diagnosis: Last Documented On 4 10:34AM By Amanda Mcpherson ; [facility] Medications Administered Includes: Administered Medications from this encounter No Administered Medications Recorded Vital Signs Includes: Vital Signs from this encounter Vital Name 06/21/2023 10:28A Height (in) 65 Weight (lb) 196 Body Mass Index 32.6 Body Surface Area 2 Pain Level 0 Note: lc Last Documented: On 06/21/2023 10:28A M ; [facility] Results Includes: Results discussed during this encounter [...] 05/06/2023 Last Documented On 4 10:27AM ; [facility] Exercising regularly 05/06/2023 Last Documented On 4 10:27AM ; [facility] No recent change in diet 05/06/2023 Last Documented On 4 10:27AM ; [facility] Not a current smoker. 05/06/2023 Last Documented On 4 10:27AM ; [facility] Not using alcohol 05/06/2023 Last Documented On 4 10:27AM ; [facility] Not using drugs 05/06/2023 Last Documented On 4 10:27AM ; [facility] Tobacco non-user 05/06/2023 Last Documented On 4 10:27AM ; [facility] Smoking Status Unknown Procedures and Surgical History Includes: Procedures from this encounter Procedures Code Diagnosis Performing Provider Service L ocation Service Date use of tobacco assessment performed 1000F Last Documented On 4 10:27AM ; [facility] patient screened for future fall risk: documentation of any fall with injury in past year 1100F Last Documented On 4 10:27AM ; [facility] review of medications documented 1160F Last Documented On 4 10:27AM ; [facility] brace Last Documented On 4 10:27AM ; [facility] Surgical History Last Updated Past Surgical History: tubal ligation Last Documented On 4 10:27AM ; [facility] History of Past Surgical History: 2022 Last Documented On 4 10:27AM ; [facility] Medical History Includes: Medical History addressed during this encounter Description Last Updated History of Heartburn / Acid Reflux 05/06 Last Documented On 4 10:27AM ; [facility] History of Hypertension 05/06/2023 Last Documented On 4 10:27AM ; [facility] History of Irregular Heartbeat 3 Last Documented On 4 10:27AM ; [facility] Family History Includes: Family History addressed during this encounter Description Last Updated Family history of systemic hypertension 05/06/2023 Last Documented On 4 10:27AM ; [facility] Stroke / Seizures 05/06/2023 Last Documented On 4 10:27AM ; [facility] Maternal grandmother's history of system ic hypertension 05/06/2023 Last Documented On 4 10:27AM ; [facility] Maternal history of systemic hypertensio n 05/06/2023 Last Documented On 4 10:27AM ; [facility] Paternal grandmother's history of Stroke / Seizures 05/06/2023 Last Documented On 4 10:27AM ; [facility] Paternal history of family history [use for free text] 05/06/2023 Last Documented On 4 10:27AM ; [facility] Paternal history of systemic hypertensio n 05/06/2023 Last Documented On 4 10:27AM ; [facility] Review of Systems Includes: Review of [...] Time Diagnosis COOLEY Injection [facility] 10:20AM 10:37AM Overweight Insurance Includes: Active Insurance Policies Plan Name Member ID Group # Subscriber Relationship Effect ricki Dates 1 - Medicare Part B [facility] [id number] Marilee Murphy 2 - [facility] [id number] Marilee Salvador Self Clinical Notes Includes: Clinical Notes from this encounter * Progress note Date Encounter Last Documented by 06/21/2023 COOLEY Injection Last documented on 06/21/2023; 10:40 AM, Damaso Lujan PA-C; [facility], [facility] Active Problems & Conditions - Joint [...] 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
--- OUTSIDE RECORDS SUMMARY | 2024-08-31 20:39 | XMS_ITS | Clinical Summary ---
Author Organization [facility] , [facility] Address [address] [place] [address] Phone Care Team Providers Care Domestic Violence Advocate Name Role Phone Jed JEAN BAPTISTE, Chetan Unavailable [phone] Haresh Becerril MD Primary Care Provider [phone] Reason for Visit and Chief Complaint The Chief Complaint is: Right Knee Pain Problems Includes: Problems addressed during this encounter and other active Problems All Visits Onset Date Resolved Date Provider Condition S tatus Joint Pain, Localized in the Right Shoulder 06/20/2024 Damaso Lujan PA-C Active Last Documented On 5 1:37PM ; [facility] Joint Pain in the Right Knee 05/06/2023 Chetan Adkins MD Active Last Documented On 3 11:37AM ; [facility] Plan of Treatment Fall Risk [...] - Last Documented On 06/14/2023 10:41AM ; [facility] Patient was seen by myself Damaso Lujan PA-C. Patient will follow up next week for the last injection. Patient was given Orthovisc injection number 3 today of the right knee under sterile technique. She tolerated it well. Band-Aid applied afterwards. She tolerated this well. - Last Documented On 06/14/2023 10:41AM ; [facility] Instructions to patient Lose weight Last Documented On 4 10:14AM ; [facility], [facility] Assessments Includes: Assessments from this encounter Findings - Overweight - Last Documented On 06/14/2023 10:41AM ; [facility], [facility] Right knee OA - Last Documented On 06/14/2023 10:41AM ; [facility], [facility] Instructions Includes: Instructions from this encounter Instructions to patient Lose weight Last Documented On 4 10:14AM ; [facility], [facility] Medical Equipment - Implanted Devices Includes: Current Devices No Medical Equipment Recorded Medications Includes: Medications discussed during this encounter and other current Medications Discontinued / Stopped on this date on 12/14/2022 Bisoprolol Fumarate 10 MG Oral Tablet Pro vider: Diagnosis: Last Documented On 4 10:13AM By Amanda Mcpherson ; [facility], [facility] Clotrimazole 1% External Cream Provider: Diagnosis: Last Documented On 4 10:13AM By Amanda Mcpherson ; [facility], [facility] Current Medications (continue as prescribed) Metoprolol Succinate ER 50 M G Oral Tablet Extended Release 24 Hour 06/19/2024 Provider: Diagnosis: Last Documented On 5 1:37PM By Royal Hua ; [facility], [facility] hydroCHLOROthiazide 12.5 MG Oral Tablet 06/02/2024 P rovider: Diagnosis: Last Documented On 5 1:37PM By Royal Hua ; [facility], [facility] Diclofenac Sodium 1% External Gel 06/14/2023 Pro vider: Diagnosis: Last Documented On 4 10:13AM By Amanda Mcpherson ; [facility], [facility] Bystolic 10 MG Oral Tablet 06/07/2023 Provider: Diagnosis: Last Documented On 4 10:34AM By Amanda Mcpherson ; [facility], [facility] Xarelto 10 MG Oral Tablet 06/07/2023 Provider: Diagnosis: Last Documented On 4 10:35AM By Amanda Mcpherson ; [facility], [facility] hydroCHLOROthiazide 12.5 MG Oral Tablet 03/22/2023 P rovider: Diagnosis: Last Documented On 3 11:38AM By Holly Michaels ; [facility] Lisinopril 10 MG Oral Tablet 02/25/2023 Provider: Diagnosis: Last Documented On 3 11:38AM By Holly Michaels ; [facility] Nitroglycerin 0.4 MG Sublingual Tablet Sublingual 08/23 Provider: Diagnosis: Last Documented On 4 10:33AM By Amanda Mcpherson ; [facility] EPITAXIAL REACTOR OPERATOR Thyroid 15 MG Oral Tablet 07/13/2022 [...] Last Documented: On 06/14/2023 10:15A M ; [facility] Results Includes: Results discussed during this encounter No Results Recorded For Specified Dates History of Present Illness Includes: History of Present Illness from this encounter HPI Marilee Salvador is a 73 year old [...] 05/06/2023 Last Documented On 4 10:14AM ; [facility] Exercising regularly 05/06/2023 Last Documented On 4 10:14AM ; [facility] No recent change in diet 05/06/2023 Last Documented On 4 10:14AM ; [facility] Not a current smoker. 05/06/2023 Last Documented On 4 10:14AM ; [facility], [facility] Not using alcohol 05/06/2023 Last Documented On 4 10:14AM ; [facility], [facility] Not using drugs 05/06/2023 Last Documented On 4 10:14AM ; [facility], [facility] Tobacco non-user 05/06/2023 Last Documented On 4 10:14AM ; [facility], [facility] Smoking Status Unknown Procedures and Surgical History Includes: Procedures from this encounter Procedures Code Diagnosis Performing Provider Service L ocation Service Date use of tobacco assessment performed 1000F Last Documented On 4 10:14AM ; [facility], [facility] patient screened for future fall risk: documentation of any fall with injury in past year 1100F Last Documented On 4 10:14AM ; [facility], [facility] review of medications documented 1160F Last Documented On 4 10:14AM ; [facility], [facility] brace Last Documented On 4 10:14AM ; [facility], [facility] Surgical History Last Updated Past Surgical History: tubal ligation Last Documented On 4 10:14AM ; [facility], [facility] History of Past Surgical History: 2022 Last Documented On 4 10:14AM ; [facility], [facility] Medical History Includes: Medical History addressed during this encounter Description Last Updated History of Heartburn / Acid Reflux 05/06 Last Documented On 4 10:14AM ; [facility] History of Hypertension 05/06/2023 Last Documented On 4 10:14AM ; [facility], [facility] History of Irregular Heartbeat 3 Last Documented On 4 10:14AM ; [facility], [facility] Family History Includes: Family History addressed during this encounter Description Last Updated Family history of systemic hypertension 05/06/2023 Last Documented On 4 10:14AM ; [facility] Stroke / Seizures 05/06/2023 Last Documented On 4 10:14AM ; [facility] Maternal grandmother's history of system ic hypertension 05/06/2023 Last Documented On 4 10:14AM ; [facility] Maternal history of systemic hypertensio n 05/06/2023 Last Documented On 4 10:14AM ; [facility], [facility] Paternal grandmother's history of Stroke / Seizures 05/06/2023 Last Documented On 4 10:14AM ; [facility] Paternal history of family history [use for free text] 05/06/2023 Last Documented On 4 10:14AM ; [facility], [facility] Paternal history of systemic hypertensio n 05/06/2023 Last Documented On 4 10:14AM ; [facility] Review of Systems Includes: Review [...] Time Diagnosis COOLEY Injection Damaso Lujan PA-C [facility] 06/14/19 24 10:07AM 10:31AM Overweight Insurance Includes: Active Insurance Policies Plan Name Member ID Group # Subscriber Relationship Effect ricki Dates 1 - Medicare Part B [facility] [id number] Marilee Salvador Self 2 - [facility] [employer] [id number] Marilee Salvador Self Clinical Notes Includes: Clinical Notes from this encounter * Progress note Date Encounter Last Documented by 06/14/2023 COOLEY Injection Last documented on 06/14/2023; 10:41 AM, Damaso Lujan PA-C; [facility], [facility] Active Problems & Conditions - Joint [...] helping though she rates her pain 06/02 Current Medication - Bystolic 10 MG Oral Tablet 0 days, 0 refills - [facility] Diclofenac Sodium 1% External Gel 0 days, 0 refills - hydroCHLOROthiazide 12.5 MG Oral Tablet 90 days, 0 refills - Lisinopril 10 MG Oral Tablet 90 days, 0 refills - Nitroglycerin 0.4 MG Sublingual Tablet Sublingual 14 days, 0 refills - EPITAXIAL REACTOR OPERATOR Thyroid 15 MG Oral Tablet 30 [...] previous injection Tests X-rays show grade 4 [id number] changes about the patellofemoral medial compartments of [...]
--- OUTSIDE RECORDS SUMMARY | 2024-08-31 20:39 | XMS_ITS ---
Care Plan - [facility], [facility] Created on: August 31, 2024 Marilee Salvador : 1950 Sex: Female Author Organization [facility] , [facility] Address [address] [place] [address] Phone Care Team Providers Care Form Block Maker Name Role Phone Jed JEAN BAPTISTE, Chetan Unavailable [phone] Jone JEAN BAPTISTE, Haresh Villasenor Primary Care Provider [phone]
--- OUTSIDE RECORDS SUMMARY | 2024-08-31 20:39 | XMS_ITS | Clinical Summary ---
Author Organization [facility] , [facility] Address [address] [place] [address] Phone Care Team Providers Care Rn Review Name Role Phone Jed JEAN BAPTISTE, Chetan Unavailable [phone] Haresh Becerril MD Primary Care Provider [phone] Reason for Visit and Chief Complaint The Chief Complaint is: Right Knee Pain Problems Includes: Problems addressed during this encounter and other active Problems All Visits Onset Date Resolved Date Provider Condition S tatus Joint Pain, Localized in the Right Shoulder 06/20/2024 Damaso Lujan PA-C Active Last Documented On 5 1:37PM ; [facility] Joint Pain in the Right Knee 05/06/2023 Chetan Adkins MD Active Last Documented On 3 11:37AM ; [facility] Plan of Treatment Fall Risk Assessment: [...] - Last Documented On 06/07/2023 11:14AM ; [facility], [facility] Patient was given an Orthovisc injection #2 today for the right knee under sterile technique. She tolerated it well. Band-Aid applied afterwards. She tolerated this well. We will see her back next week for the 3rd injection Patient was seen by myself Damaso Lujan PA-C. - Last Documented On 06/07/2023 11:14AM ; [facility], [facility] Instructions to patient Lose weight Last Documented On 4 10:31AM ; [facility], [facility] Assessments Includes: Assessments from this encounter Findings - Overweight - Last Documented On 06/07/2023 11:14AM ; [facility], [facility] Right knee OA - Last Documented On 06/07/2023 11:14AM ; [facility], [facility] Instructions Includes: Instructions from this encounter Instructions to patient Lose weight Last Documented On 4 10:31AM ; [facility], [facility] Medical Equipment - Implanted Devices Includes: Current Devices No Medical Equipment Recorded Medications Includes: Medications discussed during this encounter and other current Medications Current Medications (continue as prescribed) Metoprolol Succinate ER 50 M G Oral Tablet Extended Release 24 Hour 06/19/2024 Provider: Diagnosis: Last Documented On 5 1:37PM By Royal Hua ; [facility], [facility] hydroCHLOROthiazide 12.5 MG Oral Tablet 06/02/2024 P rovider: Diagnosis: Last Documented On 5 1:37PM By Royal Hua ; [facility], [facility] Diclofenac Sodium 1% External Gel 06/14/2023 Pro vider: Diagnosis: Last Documented On 4 10:13AM By Amanda Mcpherson ; [facility], [facility] Bystolic 10 MG Oral Tablet 06/07/2023 Provider: Diagnosis: Last Documented On 4 10:34AM By Amanda Mcpherson ; [facility], [facility] Xarelto 10 MG Oral Tablet 06/07/2023 Provider: Diagnosis: Last Documented On 4 10:35AM By Amanda Mcpherson ; [facility], [facility] hydroCHLOROthiazide 12.5 MG Oral Tablet 03/22/2023 P rovider: Diagnosis: Last Documented On 3 11:38AM By Holly Michaels ; [facility], [facility] Lisinopril 10 MG Oral Tablet 02/25/2023 Provider: Diagnosis: Last Documented On 3 11:38AM By Holly Michaels ; [facility], [facility] Nitroglycerin 0.4 MG Sublingual Tablet Sublingual 08/23 Provider: Diagnosis: Last Documented On 4 10:33AM By Amanda Mcpherson ; [facility], [facility] [employer] Thyroid 15 MG Oral Tablet 07/13/2022 Provider: Allyssa Weems Diagnosis: Last Documented On 4 10:34AM By Amanda Mcpherson ; [facility], [facility] Medications Administered Includes: Administered Medications from this encounter No Administered Medications Recorded Vital Signs Includes: Vital Signs from this encounter Vital Name 06/07/2023 10:32A Height (in) 65 Weight (lb) 200 Body Mass Index 33.3 Body Surface Area 2 Pain Level 1 Note: lc Last Documented: On 06/07/2023 10:32A M ; [facility] Results Includes: Results discussed during this encounter [...] Last Documented On 4 10:31AM ; [facility], [facility] Exercising regularly 05/06/2023 Last Documented On 4 10:31AM ; [facility], [facility] No recent change in diet 05/06/2023 Last Documented On 4 10:31AM ; [facility], [facility] Not a current smoker. 05/06/2023 Last Documented On 4 10:31AM ; [facility], [facility] Not using alcohol 05/06/2023 Last Documented On 4 10:31AM ; [facility], [facility] Not using drugs 05/06/2023 Last Documented On 4 10:31AM ; [facility], [facility] Tobacco non-user 05/06/2023 Last Documented On 4 10:31AM ; [facility] Smoking Status Unknown Procedures and Surgical History Includes: Procedures from this encounter Procedures Code Diagnosis Performing Provider Service L ocation Service Date use of tobacco assessment performed 1000F Last Documented On 4 10:31AM ; [facility], [facility] patient screened for future fall risk: documentation of any fall with injury in past year 1100F Last Documented On 4 10:31AM ; [facility] review of medications documented 1160F Last Documented On 4 10:31AM ; [facility] brace Last Documented On 4 10:31AM ; [facility] Surgical History Last Updated Past Surgical History: tubal ligation Last Documented On 4 10:31AM ; [facility] History of Past Surgical History: 2022 Last Documented On 4 10:31AM ; [facility], [facility] Medical History Includes: Medical History addressed during this encounter Description Last Updated History of Heartburn / Acid Reflux 05/06 Last Documented On 4 10:31AM ; [facility] History of Hypertension 05/06/2023 Last Documented On 4 10:31AM ; [facility] History of Irregular Heartbeat 3 Last Documented On 4 10:31AM ; [facility] Family History Includes: Family History addressed during this encounter Description Last Updated Family history of systemic hypertension 05/06/2023 Last Documented On 4 10:31AM ; [facility] Stroke / Seizures 05/06/2023 Last Documented On 4 10:31AM ; [facility] Maternal grandmother's history of system ic hypertension 05/06/2023 Last Documented On 4 10:31AM ; [facility] Maternal history of systemic hypertensio n 05/06/2023 Last Documented On 4 10:31AM ; [facility] Paternal grandmother's history of Stroke / Seizures 05/06/2023 Last Documented On 4 10:31AM ; [facility] Paternal history of family history [use for free text] 05/06/2023 Last Documented On 4 10:31AM ; [facility] Paternal history of systemic hypertensio n 05/06/2023 Last Documented On 4 10:31AM ; [facility] Review of Systems Includes: Review of [...] Time Diagnosis COOLEY Injection Damaso Lujan PA-C [facility] 06/07/19 24 10:19AM 10:45AM Overweight Insurance Includes: Active Insurance Policies Plan Name Member ID Group # Subscriber Relationship Effect ricki Dates 1 - Medicare Part [facility] [id number] Marilee Murphy 2 - [facility] [employer] [id number] Marilee Murphy Clinical Notes Includes: Clinical Notes from this encounter * Progress note Date Encounter Last Documented by 06/07/2023 COOLEY Injection Last documented on 06/07/2023; 11:14 AM, Damaso Lujan PA-C; [facility], [facility] Active Problems & Conditions - Joint [...] Tablet Sublingual 14 days, 0 refills - [employer] Thyroid 15 MG Oral Tablet 30 days, [...] previous injection Tests X-rays show grade 4 [id number] changes about the patellofemoral medial compartments of [...]
== END 2024-08-28 23:59 | disposition home or self-care (01) ==
LOC: LAB 14:29
PROVIDERS: PCP Family Medicine; Visit Provider Physician Assistant
DX: I11.9 Hypertensive heart disease without heart failure (principal); G47.33 Obstructive sleep apnea (adult) (pediatric); I47.10 Supraventricular tachycardia, unspecified; R00.2 Palpitations; I48.0 Paroxysmal atrial fibrillation
CPT/HCPCS: 36415; 80048; 80061; 80076; 83735; 84439; 84443; 85025

== ENCOUNTER 2024-09-08 09:26 | Outpatient (CLI) | payer MEDICARE, SELFPAY ==
--- OUTSIDE RECORDS SUMMARY | 2024-09-08 09:28 | XMS_ITS ---
Care Plan - [facility], [facility] Created on: September 08, 2024 Marilee Salvador : 1950 Sex: Female Author Organization [facility] , [facility] Address [address] [place] [address] Phone Care Team Providers Care Claims Representative Name Role Phone Jed JEAN BAPTISTE, Chetan Unavailable [phone] Jone JEAN BAPTISTE, Haresh Villasenor Primary Care Provider [phone]
--- NOTE | 2024-09-08 09:29 | CA_ITS ---
APPROVED REPORT EXAM: Comprehensive 2D, Doppler, and color-flow Echocardiogram Retail Area Manager: Lanie Padilla, RCS, RVS Ht: 5 ft 5 in Wt: 206lbs BSA: 2.00 BP: 126/76 mmHg Indications: Atrial Fibrillation, Palpitations, Hypertension/HDD 2D Dimensions Aortic Root 2.72 cm LA Volume 77.30 mL Left Atrium 3.73 cm LA Volume Index 38.60 mL/m2 (M/F) 16-34 RVID Base (AP4) 2.86 cm (M/F) 2.5-4.1 EF AP4 59.80 % LVOT 1.95 cm (M/F) 1.5-2.5 GL Strain -16.4 % M-Mode Dimensions RVDd 2.89 cm (0.9-2.6) LVDd 4.82 cm (3.5-5.7) Ao Diam 2.65 cm (2.0-3.7) LVDs 2.97 cm (3.5-5.7) IVSd 0.87 cm (0.6-1.1) PWd 1.03 cm (0.6-1.1) EF (Teich) 68.50% EPSs 0.49 cm FS 38.40% EDV (Teich) 108.60 mL TAPSE 1.98 (<1.7) ESV (Teich) 34.20 mL LV Diastology E Decel Time 250 (160-240 msec) E/A Ratio 1.45 MED E' 8.0 (>= 7 cm/sec) MED A' 10.60 cm/s E'/MED E' Ratio 10.69 (<= 14) LAT E' 10.4 (>= 10 cm/sec) LAT A' 11.70 cm/s E/LAT E' Ratio 8.22 (<= 14) Aortic Valve LVOT Max 89.0 (70-110 cm/s) LI Index 1.12 cm2/m2 LVOT VTI 21.08 cm AoV Peak Eddie. 120.0 (50-130 cm/s) AO Mean GR. 2.90 (<5 mmHg) AO VTI 28.0 (18-25 cm) LI (VTI) 2.25 (2.5-4.5 cm2) Mitral Valve MV E Max Eddie. 86.0 (40-130 cm/s) MV A Velocity 59.0 (40-130 cm/s) E/A Ratio 1.45 MV Decel. Time 250 (160-240 ms) Tricuspid Valve TR P. Velocity 253.00 cm/s RAP Estimate 10.00 mmHg RVSP 35.60 mmHg Left Ventricle The left ventricle is normal size. The left ventricular systolic function is normal. The left ventricular ejection fraction is within the normal range. There is normal left ventricular wall thickness. There is normal LV segmental wall motion. Transmitral Doppler flow pattern suggests impaired LV relaxation. LVEF is 55%. Right Ventricle The right ventricle is normal size. The right ventricular systolic function is normal. Atria Left atrium is moderately dilated. Right atrium is mildly dilated. There is no Doppler evidence of interatrial shunt. Aortic Valve The aortic valve is mildly thickened. Trace aortic regurgitation. There is no aortic valvular stenosis. Mitral Valve The mitral valve is normal in structure. No evidence of mitral valve stenosis. Mild mitral regurgitation. Tricuspid Valve Tricuspid valve is grossly normal in structure and function. Trace tricuspid regurgitation. There is insufficient TR jet to estimate RVSP. Pulmonic Valve The pulmonary valve is normal in structure. Trace pulmonic regurgitation. Great Vessels The aortic root is normal in size. IVC is normal in size and collapses >50% with inspiration. Pericardium There is no pericardial effusion. Other Information Study Quality: Fair Conclusion Normal biventricular systolic function. Biatrial dilation. Mild MR. Electronically signed by : Fannie Hernandez MD 09/11/2024 22:49:50
--- OUTSIDE RECORDS SUMMARY | 2024-09-08 09:29 | XMS_ITS ---
Author Organization [facility] Address [address] [place] [address] Phone Care Team Providers Care Admissions Nurse Name Role Phone Jed JEAN BAPTISTE, Chetan Unavailable [phone] Haresh Becerril MD Primary Care Provider [phone] Problems Includes: Active, inactive, and resolved Problems All Visits Onset Date Resolved Date Provider Condition S tatus Joint Pain, Localized in the Right Shoulder 06/20/2024 Damaso Lujan PA-C Active Last Documented On 5 1:37PM ; [facility], [facility] Joint Pain in the Right Knee 05/06/2023 Chetan Adkins MD Active Last Documented On 3 11:37AM ; [facility], [facility] Plan of Treatment Instructions to patient Lose weight Last Documented On 5 1:37PM ; [facility] Lose weight Last Documented On 4 10:27AM ; [facility] Lose weight Last Documented On 4 10:14AM ; [facility], [facility] Lose weight Last Documented On 4 10:31AM ; [facility], [facility] Lose weight Last Documented On 4 10:55AM ; [facility], [facility] Lose weight Last Documented On 3 11:43AM ; [facility], [facility] Assessments Includes: Assessments for all patient encounters Findings Encounter Date Overweight NEW PROBLEM/EST PT with Damaso Lujan PA-C 06/20/2024 Last Documented On 5 12:54PM ; [facility], [facility] Overweight COOLEY Injection with Damaso Lujan PA-C 06/21/2023 Last Documented On 4 10:40AM ; [facility] Overweight COOLEY Injection with Damaso Lujan PA-C 06/14/2023 Last Documented On 4 10:41AM ; [facility] Overweight COOLEY Injection with Dmaaso Lujan PA-C 06/07/2023 Last Documented On 4 11:14AM ; [facility] Overweight COOLEY Injection with Damaso Lujan PA-C 05/31/2023 Last Documented On 4 11:04AM ; [facility], [facility] Overweight Physician Specified with Chetan Adkins MD 05/06/2023 Last Documented On 3 10:57AM ; [facility], [facility] Instructions Includes: Instructions for all patient encounters Instructions to patient Lose weight Last Documented On 5 1:37PM ; [facility], [facility] Lose weight Last Documented On 4 10:27AM ; [facility], [facility] Lose weight Last Documented On 4 10:14AM ; [facility] Lose weight Last Documented On 4 10:31AM ; [facility] Lose weight Last Documented On 4 10:55AM ; [facility] Lose weight Last Documented On 3 11:43AM ; [facility], [facility] Medical Equipment - Implanted Devices Includes: Current and historical Devices No Medical Equipment Recorded Medications Includes: Current and historical Medications Current Medications (continue as prescribed) Metoprolol Succinate ER 50 M G Oral Tablet Extended Release 24 Hour 06/19/2024 Provider: Diagnosis: Last Documented On 5 1:37PM By Royal Hua ; [facility], [facility] hydroCHLOROthiazide 12.5 MG Oral Tablet 06/02/2024 P angleder: Diagnosis: Last Documented On 5 1:37PM By Royal Hua ; [facility], [facility] Diclofenac Sodium 1% External Gel 06/14/2023 Pro vider: Diagnosis: Last Documented On 4 10:13AM By Amanda Mcpherson ; [facility], [facility] Bystolic 10 MG Oral Tablet 06/07/2023 Provider: Diagnosis: Last Documented On 4 10:34AM By Amanda Mcpherson ; [facility], [facility] Xarelto 10 MG Oral Tablet 06/07/2023 Provider: Diagnosis: Last Documented On 4 10:35AM By Amanda Mcpherson ; [facility] hydroCHLOROthiazide 12.5 MG Oral Tablet 03/22/2023 P rovider: Diagnosis: Last Documented On 3 11:38AM By Holly Michaels ; [facility], [facility] Lisinopril 10 MG Oral Tablet 02/25/2023 Provider: Diagnosis: Last Documented On 3 11:38AM By Holly Michaels ; [facility] Nitroglycerin 0.4 MG Sublingual Tablet Sublingual 08/23 Provider: Diagnosis: Last Documented On 4 10:33AM By Amanda Mcpherson ; [facility], [facility] GENERATOR MAN Thyroid 15 MG Oral Tablet 07/13/2022 Provider: Allyssa Weems Diagnosis: Last Documented On 4 10:34AM By Amanda Mcpherson ; [facility], [facility] Past Medications on file Bisoprolol Fumarate 10 MG Oral Tablet 12/14/2022 - Provider: Diagnosis: Last Documented On 4 10:13AM By Amanda Mcpherson ; [facility], [facility] Lisinopril 10 MG Oral Tablet 12/01/2022 - 05/31/2023 P rovider: Diagnosis: Last Documented On 4 10:55AM By Amanda Mcpherson ; [facility], [facility] Clotrimazole 1% External Cream 10/11/2022 - 06/14/2023 Provider: Diagnosis: Last Documented On 4 10:13AM By Amanda Mcpherson ; [facility] Medications Administered Includes: Administered Medications in patient's chart No Administered Medications Recorded Vital Signs Includes: Vital Signs from 09/09/2023 through 09/08/2024 Vital Name 06/20/2024 01:52P Height (in) 66 Weight (lb) 200 Body Mass Index 32.3 Body Surface Area 2 Pain Level 4 Last Documented: On 06/20/2024 1:52PM ; [facility] Results Includes: Results from 09/09/2023 through 09/08/2024 No Results Recorded For Specified Dates History of Present Illness History of Present Illness not supported for this document type No History of Present Illness Recorded Social History Description Last Updated Caffeine use 05/06/2023 Last Documented On 3 10:57AM ; [facility], [facility] Exercising regularly 05/06/2023 Last Documented On 3 10:57AM ; [facility] No recent change in diet 05/06/2023 Last Documented On 3 10:57AM ; [facility] Not a current smoker. 05/06/2023 Last Documented On 3 10:57AM ; [facility] Not using alcohol 05/06/2023 Last Documented On 3 10:57AM ; [facility] Not using drugs 05/06/2023 Last Documented On 3 10:57AM ; [facility] Tobacco non-user 05/06/2023 Last Documented On 3 10:57AM ; [facility] Smoking Status Unknown Procedures and Surgical History Includes: Procedures from 09/09/2023 through 09/08/2024 Procedures Code Diagnosis Performing Provider Service Location Service Date DRAIN/INJECT, JOINT/BURSA (LEFT) Other bursitis of hip, left hip Damaso Lujan PA-C [facility] 06/20/2024 Last Documented On 5 3:04PM ; [facility] X-RAY EXAM OF SHOULDER 2-3 VIEWS (RIGHT) 58072 Strain of musc/tend the rotator cuff of right shoulder, init Damaso Lujan PA-C [facility] 06/20/2024 Last Documented On 5 3:04PM ; [facility] AP PELVIS w/ 1 VIEW HIP (LEFT) 60128 Other bursitis of hip, left hip Damaso Lujan PA-C [facility] 06/20/2024 Last Documented On 5 3:04PM ; [facility] Injection, betamethasone acetate 6mg per cc and betamethason J0702 Other bursitis of hip, left hip Damaso Lujan PA-C [facility] 06/20/2024 Last Documented On 5 3:04PM ; [facility], [facility] Surgical History Last Updated Past Surgical History: tubal ligation Last Documented On 3 10:57AM ; [facility], [facility] History of Past Surgical History: 2022 Last Documented On 3 10:57AM ; [facility], [facility] Medical History Includes: Medical History in patient's chart Description Last Updated History of Heartburn / Acid Reflux 05/06 Last Documented On 3 10:57AM ; [facility], [facility] History of Hypertension 05/06/2023 Last Documented On 3 10:57AM ; [facility], [facility] History of Irregular Heartbeat 3 Last Documented On 3 10:57AM ; [facility], [facility] Family History Includes: Family History in patient's chart Description Last Updated Family history of systemic hypertension 05/06/2023 Last Documented On 3 10:57AM ; [facility], [facility] Stroke / Seizures 05/06/2023 Last Documented On 3 10:57AM ; [facility], [facility] Maternal grandmother's history of system ic hypertension 05/06/2023 Last Documented On 3 10:57AM ; [facility], [facility] Maternal history of systemic hypertensio n 05/06/2023 Last Documented On 3 10:57AM ; [facility], [facility] Paternal grandmother's history of Stroke / Seizures 05/06/2023 Last Documented On 3 10:57AM ; [facility], [facility] Paternal history of family history [use for free text] 05/06/2023 Last Documented On 3 10:57AM ; [facility], [facility] Paternal history of systemic hypertensio n 05/06/2023 Last Documented On 3 10:57AM ; [facility], [facility] Review of Systems Review of Systems not supported for this document type No Review of Systems Recorded Mental Status Description No anxiety Functional Status No Functional Status Recorded Physical Exam Physical Exam not supported for this document type No Physical Exam Recorded Allergies Includes: Active, inactive, and resolved Allergies No Known Allergies Encounters Includes: Encounters from 09/09/2023 through 09/08/2024 Encounter Provider Location Date Check-In Time Check-Out Time Diagnosis NEW PROBLEM/EST PT Damaso Lujan PA-C [facility] 06/20/19 1:35PM 2:32PM Overweight Insurance Includes: Active Insurance Policies Plan Name Member ID Group # Subscriber Relationship Effect ricki Dates 1 - Medicare Part B [facility] [id number] Marilee Salvador Self 2 - [facility] [employer] [id number] Marilee Salvador Self Clinical Notes Includes: Signed Clinical Notes starting from 05/07/2022 * Progress note Date Encounter Last Documented by 06/20/2024 NEW PROBLEM/EST PT Last document ed on 06/28/2024; 12:54 PM, Damaso Lujan PA-C; [facility], [facility] Active Problems & Conditions - [...] Tablet Sublingual 14 days, 0 refills - GENERATOR MAN Thyroid 15 MG Oral Tablet 30 days, [...]
--- OUTSIDE RECORDS SUMMARY | 2024-09-08 09:29 | XMS_ITS | Clinical Summary ---
Author Organization [facility] , [facility] Address [address] [place] [address] Phone Care Team Providers Care Vascular Technologist Name Role Phone Jed JEAN BAPTISTE, Chetan Unavailable [phone] Haresh Becerril MD Primary Care Provider [phone] Reason for Visit and Chief Complaint The Chief Complaint is: Right Knee Pain Problems Includes: Problems addressed during this encounter and other active Problems All Visits Onset Date Resolved Date Provider Condition S tatus Joint Pain, Localized in the Right Shoulder 06/20/2024 Damaso Lujan PA-C Active Last Documented On 5 1:37PM ; [facility] Joint Pain in the Right Knee 05/06/2023 Chetan Adkins MD Active Last Documented On 3 11:37AM ; [facility] Plan of Treatment Fall Risk Assessment: [...] - Last Documented On 05/31/2023 11:04AM ; [facility] Patient was seen by myself Damaso Lujan PA-C. Patient will follow up next week for the 2nd injection. Patient was given Orthovisc injection one today to the right knee under sterile technique. She tolerated it well. Band-Aid applied afterwards. - Last Documented On 05/31/2023 11:04AM ; [facility] Instructions to patient Lose weight Last Documented On 4 10:55AM ; [facility], [facility] Assessments Includes: Assessments from this encounter Findings - Overweight - Last Documented On 05/31/2023 11:04AM ; [facility], [facility] Right knee OA - Last Documented On 05/31/2023 11:04AM ; [facility], [facility] Instructions Includes: Instructions from this encounter Instructions to patient Lose weight Last Documented On 4 10:55AM ; [facility], [facility] Medical Equipment - Implanted Devices Includes: Current Devices No Medical Equipment Recorded Medications Includes: Medications discussed during this encounter and other current Medications Discontinued / Stopped on this date on 12/01/2022 Lisinopril 10 MG Oral Tablet Provider: Diagnosis: Last Documented On 4 10:55AM By Amanda Mcpherson ; [facility], [facility] Current Medications (continue as prescribed) Metoprolol Succinate ER 50 M G Oral Tablet Extended Release 24 Hour 06/19/2024 Provider: Diagnosis: Last Documented On 5 1:37PM By Royal Hua ; [facility], [facility] hydroCHLOROthiazide 12.5 MG Oral Tablet 06/02/2024 P rovider: Diagnosis: Last Documented On 5 1:37PM By Royal Hua ; [facility], [facility] Diclofenac Sodium 1% External Gel 06/14/2023 Pro vider: Diagnosis: Last Documented On 4 10:13AM By Amanda Mcpherson ; [facility] Bystolic 10 MG Oral Tablet 06/07/2023 Provider: Diagnosis: Last Documented On 4 10:34AM By Amanda Mcpherson ; [facility], [facility] Xarelto 10 MG Oral Tablet 06/07/2023 Provider: Diagnosis: Last Documented On 4 10:35AM By mAanda Mcpherson ; [facility], [facility] hydroCHLOROthiazide 12.5 MG Oral Tablet 03/22/2023 P rovider: Diagnosis: Last Documented On 3 11:38AM By Holly Michaels ; [facility], [facility] Lisinopril 10 MG Oral Tablet 02/25/2023 Provider: Diagnosis: Last Documented On 3 11:38AM By Holly Michaels ; [facility], [facility] Nitroglycerin 0.4 MG Sublingual Tablet Sublingual 08/23 Provider: Diagnosis: Last Documented On 4 10:33AM By Amanda Mcpherson ; [facility], [facility] Thyroid 15 MG Oral Tablet 07/13/2022 Provider: Allyssa Weems Diagnosis: Last Documented On 4 10:34AM By Amanda Mcpherson ; [facility], [facility] Medications Administered Includes: Administered Medications from this encounter No Administered Medications Recorded Vital Signs Includes: Vital Signs from this encounter Vital Name 05/31/2023 10:56A Height (in) 65 Weight (lb) 200 Body Mass Index 33.3 Body Surface Area 2 Pain Level 0 Note: lc Last Documented: On 05/31/2023 10:56A M ; [facility] Results Includes: Results discussed during [...] Documented On 4 10:55AM ; [facility], [facility] Exercising regularly 05/06/2023 Last Documented On 4 10:55AM ; [facility], [facility] No recent change in diet 05/06/2023 Last Documented On 4 10:55AM ; [facility], [facility] Not a current smoker. 05/06/2023 Last Documented On 4 10:55AM ; [facility], [facility] Not using alcohol 05/06/2023 Last Documented On 4 10:55AM ; [facility], [facility] Not using drugs 05/06/2023 Last Documented On 4 10:55AM ; [facility] Tobacco non-user 05/06/2023 Last Documented On 4 10:55AM ; [facility] Smoking Status Unknown Procedures and Surgical History Includes: Procedures from this encounter Procedures Code Diagnosis Performing Provider Service L ocation Service Date use of tobacco assessment performed 1000F Last Documented On 4 10:55AM ; [facility], [facility] patient screened for future fall risk: documentation of any fall with injury in past year 1100F Last Documented On 4 10:55AM ; [facility] review of medications documented 1160F Last Documented On 4 10:55AM ; [facility], [facility] brace Last Documented On 4 10:55AM ; [facility], [facility] Surgical History Last Updated Past Surgical History: tubal ligation Last Documented On 4 10:55AM ; [facility], [facility] History of Past Surgical History: 2022 Last Documented On 4 10:55AM ; [facility], [facility] Medical History Includes: Medical History addressed during this encounter Description Last Updated History of Heartburn / Acid Reflux 05/06 Last Documented On 4 10:55AM ; [facility], [facility] History of Hypertension 05/06/2023 Last Documented On 4 10:55AM ; [facility], [facility] History of Irregular Heartbeat 3 Last Documented On 4 10:55AM ; [facility] Family History Includes: Family History addressed during this encounter Description Last Updated Family history of systemic hypertension 05/06/2023 Last Documented On 4 10:55AM ; [facility], [facility] Stroke / Seizures 05/06/2023 Last Documented On 4 10:55AM ; [facility], [facility] Maternal grandmother's history of system ic hypertension 05/06/2023 Last Documented On 4 10:55AM ; [facility], [facility] Maternal history of systemic hypertensio n 05/06/2023 Last Documented On 4 10:55AM ; [facility] Paternal grandmother's history of Stroke / Seizures 05/06/2023 Last Documented On 4 10:55AM ; [facility] Paternal history of family history [use for free text] 05/06/2023 Last Documented On 4 10:55AM ; [facility] Paternal history of systemic hypertensio n 05/06/2023 Last Documented On 4 10:55AM ; [facility] Review of Systems Includes: Review of [...] Time Diagnosis COOLEY Injection [facility]aso Lujan [facility] 24 10:50AM 11:05AM Overweight Insurance Includes: Active Insurance Policies Plan Name Member ID Group # Subscriber Relationship Effect ricki Dates 1 - Medicare Part B [facility] [id number] Marilee Salvador Self 2 - [employer] [facility] CLAIMS DIVISION [id number] Marilee Salvador Self Clinical Notes Includes: Clinical Notes from this encounter * Progress note Date Encounter Last Documented by 05/31/2023 COOLEY Injection Last documented on 05/31/2023; 11:04 AM, Damaso Lujan PA-C; [facility], [facility] Active Problems & Conditions - [...] to 120 Tests X-rays show grade 4 [id number] changes about the patellofemoral medial compartments of [...]
--- OUTSIDE RECORDS SUMMARY | 2024-09-08 09:29 | XMS_ITS | Clinical Summary ---
Author Organization [facility] , [facility] Address [address] [place] [address] Phone Care Team Providers Care Engine Mechanic Name Role Phone Jed JEAN BAPTISTE, Chetan Unavailable [phone] Haresh Becerril MD Primary Care Provider [phone] Reason for Visit and Chief Complaint The Chief Complaint is: Right Knee Pain Problems Includes: Problems addressed during this encounter and other active Problems All Visits Onset Date Resolved Date Provider Condition S tatus Joint Pain, Localized in the Right Shoulder 06/20/2024 Damaso Lujan PA-C Active Last Documented On 5 1:37PM ; [facility] Joint Pain in the Right Knee 05/06/2023 Chetan Adkins MD Active Last Documented On 3 11:37AM ; [facility] Plan of Treatment Fall Risk [...] - Last Documented On 06/07/2023 11:14AM ; [facility], [facility] Patient was given an Orthovisc injection #2 today for the right knee under sterile technique. She tolerated it well. Band-Aid applied afterwards. She tolerated this well. We will see her back next week for the 3rd injection Patient was seen by myself Damaso Lujan PA-C. - Last Documented On 06/07/2023 11:14AM ; [facility], [facility] Instructions to patient Lose weight Last Documented On 4 10:31AM ; [facility], [facility] Assessments Includes: Assessments from this encounter Findings - Overweight - Last Documented On 06/07/2023 11:14AM ; [facility], [facility] Right knee OA - Last Documented On 06/07/2023 11:14AM ; [facility], [facility] Instructions Includes: Instructions from this encounter Instructions to patient Lose weight Last Documented On 4 10:31AM ; [facility], [facility] Medical Equipment - Implanted Devices Includes: Current Devices No Medical Equipment Recorded Medications Includes: Medications discussed during this encounter and other current Medications Current Medications (continue as prescribed) Metoprolol Succinate ER 50 M G Oral Tablet Extended Release 24 Hour 06/19/2024 Provider: Diagnosis: Last Documented On 5 1:37PM By Royal Hua ; [facility], [facility] hydroCHLOROthiazide 12.5 MG Oral Tablet 06/02/2024 P rovider: Diagnosis: Last Documented On 5 1:37PM By Royal Hua ; [facility], [facility] Diclofenac Sodium 1% External Gel 06/14/2023 Pro vider: Diagnosis: Last Documented On 4 10:13AM By Amanda Mcpherson ; [facility], [facility] Bystolic 10 MG Oral Tablet 06/07/2023 Provider: Diagnosis: Last Documented On 4 10:34AM By Amanda Mcpherson ; [facility], [facility] Xarelto 10 MG Oral Tablet 06/07/2023 Provider: Diagnosis: Last Documented On 4 10:35AM By Amanda Mcpherson ; [facility], [facility] hydroCHLOROthiazide 12.5 MG Oral Tablet 03/22/2023 P rovider: Diagnosis: Last Documented On 3 11:38AM By Holly Michaels ; [facility], [facility] Lisinopril 10 MG Oral Tablet 02/25/2023 Provider: Diagnosis: Last Documented On 3 11:38AM By Holly Michaels ; [facility], [facility] Nitroglycerin 0.4 MG Sublingual Tablet Sublingual 08/23 Provider: Diagnosis: Last Documented On 4 10:33AM By Amanda Mcpherson ; [facility], [facility] S[employer]IECE [employer]ER Thyroid 15 MG Oral Tablet 07/13/2022 Provider: Allyssa Weems Diagnosis: Last Documented On 4 10:34AM By Amanda Mcpherson ; [facility], [facility] Medications Administered Includes: Administered Medications [...] Documented On 4 10:31AM ; [facility], [facility] Exercising regularly 05/06/2023 Last Documented On 4 10:31AM ; [facility] No recent change in diet 05/06/2023 Last Documented On 4 10:31AM ; [facility] Not a current smoker. 05/06/2023 Last Documented On 4 10:31AM ; [facility], [facility] Not using alcohol 05/06/2023 Last Documented On 4 10:31AM ; [facility], [facility] Not using drugs 05/06/2023 Last Documented On 4 10:31AM ; [facility], [facility] Tobacco non-user 05/06/2023 Last Documented On 4 10:31AM ; [facility] Smoking Status Unknown Procedures and Surgical History Includes: Procedures from this encounter Procedures Code Diagnosis Performing Provider Service L ocation Service Date use of tobacco assessment performed 1000F Last Documented On 4 10:31AM ; [facility], [facility] patient screened for future fall risk: documentation of any fall with injury in past year 1100F Last Documented On 4 10:31AM ; [facility] review of medications documented 1160F Last Documented On 4 10:31AM ; [facility], [facility] brace Last Documented On 4 10:31AM ; [facility] Surgical History Last Updated Past Surgical History: tubal ligation Last Documented On 4 10:31AM ; [facility] History of Past Surgical History: 2022 Last Documented On 4 10:31AM ; [facility], [facility] Medical History Includes: Medical History addressed during this encounter Description Last Updated History of Heartburn / Acid Reflux 05/06 Last Documented On 4 10:31AM ; [facility] History of Hypertension 05/06/2023 Last Documented On 4 10:31AM ; [facility], [facility] History of Irregular Heartbeat 3 Last Documented On 4 10:31AM ; [facility] Family History Includes: Family History addressed during this encounter Description Last Updated Family history of systemic hypertension 05/06/2023 Last Documented On 4 10:31AM ; [facility] Stroke / Seizures 05/06/2023 Last Documented On 4 10:31AM ; [facility] Maternal grandmother's history of system ic hypertension 05/06/2023 Last Documented On 4 10:31AM ; [facility], [facility] Maternal history of systemic hypertensio n 05/06/2023 Last Documented On 4 10:31AM ; [facility], [facility] Paternal grandmother's history of Stroke / Seizures 05/06/2023 Last Documented On 4 10:31AM ; [facility] Paternal history of family history [use for free text] 05/06/2023 Last Documented On 4 10:31AM ; [facility] Paternal history of systemic hypertensio n 05/06/2023 Last Documented On 4 10:31AM ; [facility] Review of Systems Includes: Review [...] Time Diagnosis COOLEY Injection Damaso Lujan PA-C [facility] 06/07/19 24 10:19AM 10:45AM Overweight Insurance Includes: Active Insurance Policies Plan Name Member ID Group # Subscriber Relationship Effect ricki Dates 1 - Medicare Part [facility] [id number] Marilee Murphy 2 - [facility] CLAIMS [employer] [id number] Marilee Murphy Clinical Notes Includes: Clinical Notes from this encounter * Progress note Date Encounter Last Documented by 06/07/2023 COOLEY Injection Last documented on 06/07/2023; 11:14 AM, Damaso Lujan PA-C; [facility], [facility] Active Problems & Conditions - [...] Tablet Sublingual 14 days, 0 refills - [employer] Thyroid 15 MG Oral Tablet 30 days, [...] previous injection Tests X-rays show grade 4 [id number] changes about the patellofemoral medial compartments of [...]
--- OUTSIDE RECORDS SUMMARY | 2024-09-08 09:29 | XMS_ITS | Clinical Summary ---
Author Organization [facility] , [facility] Address [address] [place] [address] Phone Care Team Providers Care Traffic Operations Engineer Name Role Phone Jed JEAN BAPTISTE, Chetan Unavailable [phone] Haresh Becerril MD Primary Care Provider [phone] Reason for Visit and Chief Complaint The Chief Complaint is: Right Knee Pain Problems Includes: Problems addressed during this encounter and other active Problems All Visits Onset Date Resolved Date Provider Condition S tatus Joint Pain, Localized in the Right Shoulder 06/20/2024 Damaso Lujan PA-C Active Last Documented On 5 1:37PM ; [facility] Joint Pain in the Right Knee 05/06/2023 Chetan Adkins MD Active Last Documented On 3 11:37AM ; [facility] Plan of Treatment Fall Risk [...] - Last Documented On 06/14/2023 10:41AM ; [facility] Patient was seen by myself Damaso Lujan PA-C. Patient will follow up next week for the last injection. Patient was given Orthovisc injection number 3 today of the right knee under sterile technique. She tolerated it well. Band-Aid applied afterwards. She tolerated this well. - Last Documented On 06/14/2023 10:41AM ; [facility] Instructions to patient Lose weight Last Documented On 4 10:14AM ; [facility], [facility] Assessments Includes: Assessments from this encounter Findings - Overweight - Last Documented On 06/14/2023 10:41AM ; [facility] Right knee OA - Last Documented On 06/14/2023 10:41AM ; [facility] Instructions Includes: Instructions from this encounter Instructions to patient Lose weight Last Documented On 4 10:14AM ; [facility] Medical Equipment - Implanted Devices Includes: Current Devices No Medical Equipment Recorded Medications Includes: Medications discussed during this encounter and other current Medications Discontinued / Stopped on this date on 12/14/2022 Bisoprolol Fumarate 10 MG Oral Tablet Pro vider: Diagnosis: Last Documented On 4 10:13AM By Amanda Mcpherson ; [facility], [facility] Clotrimazole 1% External Cream Provider: Diagnosis: Last Documented On 4 10:13AM By Amanda Mcpherson ; [facility], [facility] Current Medications (continue as prescribed) Metoprolol Succinate ER 50 M G Oral Tablet Extended Release 24 Hour 06/19/2024 Provider: Diagnosis: Last Documented On 5 1:37PM By Royal Hua ; [facility], [facility] hydroCHLOROthiazide 12.5 MG Oral Tablet 06/02/2024 P rovider: Diagnosis: Last Documented On 5 1:37PM By Royal Hua ; [facility] Diclofenac Sodium 1% External Gel 06/14/2023 Pro vider: Diagnosis: Last Documented On 4 10:13AM By Amanda Mcpherson ; [facility], [facility] Bystolic 10 MG Oral Tablet 06/07/2023 Provider: Diagnosis: Last Documented On 4 10:34AM By Amanda Mcpherson ; [facility] Xarelto 10 MG Oral Tablet 06/07/2023 Provider: Diagnosis: Last Documented On 4 10:35AM By Amanda Mcpherson ; [facility], [facility] hydroCHLOROthiazide 12.5 [...] 10:33AM By Amanda Mcpherson ; [facility] [employer] Thyroid 15 MG Oral Tablet 07/13/2022 Provider: [...] On 06/14/2023 10:15A M ; [facility] Results Includes: Results discussed during [...] Documented On 4 10:14AM ; [facility] No recent change in diet 05/06/2023 Last Documented On 4 10:14AM ; [facility] Not a current smoker. 05/06/2023 Last Documented On 4 10:14AM ; [facility] Not using alcohol 05/06/2023 Last Documented On 4 10:14AM ; [facility] Not using drugs 05/06/2023 Last Documented On 4 10:14AM ; [facility] Tobacco non-user 05/06/2023 Last Documented On 4 10:14AM ; [facility] Smoking Status Unknown Procedures and Surgical History Includes: Procedures from this encounter Procedures Code Diagnosis Performing Provider Service L ocation Service Date use of tobacco assessment performed 1000F Last Documented On 4 10:14AM ; [facility] patient screened for future fall risk: documentation of any fall with injury in past year 1100F Last Documented On 4 10:14AM ; [facility] review of medications documented 1160F Last Documented On 4 10:14AM ; [facility] brace Last Documented On 4 10:14AM ; [facility], [facility] Surgical History Last Updated Past Surgical History: tubal ligation Last Documented On 4 10:14AM ; [facility] History of Past Surgical History: 2022 Last Documented On 4 10:14AM ; [facility] Medical History Includes: Medical History addressed during this encounter Description Last Updated History of Heartburn / Acid Reflux 05/06 Last Documented On 4 10:14AM ; [facility] History of Hypertension 05/06/2023 Last Documented On 4 10:14AM ; [facility] History of Irregular Heartbeat 3 Last Documented On 4 10:14AM ; [facility] Family History Includes: Family History addressed during this encounter Description Last Updated Family history of systemic hypertension 05/06/2023 Last Documented On 4 10:14AM ; [facility] Stroke / Seizures 05/06/2023 Last Documented On 4 10:14AM ; [facility] Maternal grandmother's history of system ic hypertension 05/06/2023 Last Documented On 4 10:14AM ; [facility] Maternal history of systemic hypertensio n 05/06/2023 Last Documented On 4 10:14AM ; [facility], [facility] Paternal grandmother's history of Stroke / Seizures 05/06/2023 Last Documented On 4 10:14AM ; [facility] Paternal history of family history [use for free text] 05/06/2023 Last Documented On 4 10:14AM ; [facility], [facility] Paternal history of systemic hypertensio n 05/06/2023 Last Documented On 4 10:14AM ; [facility] Review of Systems Includes: Review [...] Time Diagnosis COOLEY Injection Damaso Lujan PA-C [facility] 06/14/19 24 10:07AM 10:31AM Overweight Insurance Includes: Active Insurance Policies Plan Name Member ID Group # Subscriber Relationship Effect ricki Dates 1 - Medicare Part B [facility] [id number] Marilee Salvador Self 2 - [facility] [employer] [id number] Marilee Salvador Self Clinical Notes Includes: Clinical Notes from this encounter * Progress note Date Encounter Last Documented by 06/14/2023 COOLEY Injection Last documented on 06/14/2023; 10:41 AM, Damaso Lujan PA-C; [facility], [facility] Active Problems & [...] Tablet Sublingual 14 days, 0 refills - [employer] Thyroid 15 MG Oral Tablet 30 days, [...] previous injection Tests X-rays show grade 4 [id number] changes about the patellofemoral medial compartments of [...]
--- OUTSIDE RECORDS SUMMARY | 2024-09-08 09:29 | XMS_ITS | Clinical Summary ---
Author Organization [facility] , [facility] Address [address] [place] [address] Phone Care Team Providers Care Assistant Superintendent Name Role Phone Jed JEAN BAPTISTE, Chetan Unavailable [phone] Haresh Becerril MD Primary Care Provider [phone] Reason for Visit and Chief Complaint The Chief Complaint is: Right shoulder/left hip pain Problems Includes: Problems addressed during this encounter and other active Problems Current Visit Onset Date Resolved Date Provider Conditio n Status Joint Pain, Localized in the Right Shoulder 06/20/2024 Damaso Lujan PA-C Active Last Documented On 5 1:37PM ; [facility] Past Visits Onset Date Resolved Date Provider Condition Status Joint Pain in the Right Knee 05/06/2023 Chetan Adkins MD Active Last Documented On 3 11:37AM ; [facility] Plan of Treatment Fall Risk Assessment: [...] - Last Documented On 06/28/2024 12:54PM ; [facility] Patient was seen by myself Damaso [...] - Last Documented On 06/28/2024 12:54PM ; [facility] Instructions to patient Lose weight Last Documented On 5 1:37PM ; [facility], [facility] Assessments Includes: Assessments from this encounter Findings - Overweight - Last Documented On 06/28/2024 12:54PM ; [facility] Left hip pain likely aggravation of some hip bursitis and right shoulder rotator cuff strain - Last Documented On 06/28/2024 12:54PM ; [facility], [facility] Instructions Includes: Instructions from this encounter Instructions to patient Lose weight Last Documented On 5 1:37PM ; [facility], [facility] Medical Equipment - Implanted Devices Includes: Current Devices No Medical Equipment Recorded Medications Includes: Medications discussed during this encounter and other current Medications Current Medications (continue as prescribed) Metoprolol Succinate ER 50 M G Oral Tablet Extended Release 24 Hour 06/19/2024 Provider: Diagnosis: Last Documented On 5 1:37PM By Royal Hua ; [facility], [facility] hydroCHLOROthiazide 12.5 MG Oral Tablet 06/02/2024 P rovider: Diagnosis: Last Documented On 5 1:37PM By Royal Hua ; [facility], [facility] Diclofenac Sodium 1% External Gel 06/14/2023 Pro vider: Diagnosis: Last Documented On 4 10:13AM By Amanda Mcpherson ; [facility], [facility] Bystolic 10 MG Oral Tablet 06/07/2023 Provider: Diagnosis: Last Documented On 4 10:34AM By Amanda Mcpherson ; [facility], [facility] Xarelto 10 MG Oral Tablet 06/07/2023 Provider: Diagnosis: Last Documented On 4 10:35AM By Amanda Mcpherson ; [facility], [facility] hydroCHLOROthiazide 12.5 MG Oral Tablet 03/22/2023 P rovider: Diagnosis: Last Documented On 3 11:38AM By Holly Michaels ; [facility], [facility] Lisinopril 10 MG Oral Tablet 02/25/2023 Provider: Diagnosis: Last Documented On 3 11:38AM By Holly Michaels ; [facility], [facility] Nitroglycerin 0.4 MG Sublingual Tablet Sublingual 08/23 Provider: Diagnosis: Last Documented On 4 10:33AM By Amanda Mcpherson ; [facility], [facility] RESIDENT IN DIAGNOSTIC RADIOLOGY Thyroid 15 MG Oral Tablet 07/13/2022 Provider: Allyssa Weems Diagnosis: Last Documented On 4 10:34AM By Amanda Mcpherson ; [facility], [facility] Medications Administered Includes: Administered Medications from this encounter No Administered Medications Recorded Vital Signs Includes: Vital Signs from this encounter Vital Name 06/20/2024 01:52P Height (in) 66 Weight (lb) 200 Body Mass Index 32.3 Body Surface Area 2 Pain Level 4 Last Documented: On 06/20/2024 1:52PM ; [facility], [facility] Results Includes: Results discussed during this encounter No Results Recorded For Specified Dates History of Present Illness Includes: History of Present Illness from this encounter RAJ Salvaodr is a 74 year old female. - [...] 05/06/2023 Last Documented On 5 1:37PM ; [facility] Exercising regularly 05/06/2023 Last Documented On 5 1:37PM ; [facility] No recent change in diet 05/06/2023 Last Documented On 5 1:37PM ; [facility] Not a current smoker. 05/06/2023 Last Documented On 5 1:37PM ; [facility] Not using alcohol 05/06/2023 Last Documented On 5 1:37PM ; [facility] Not using drugs 05/06/2023 Last Documented On 5 1:37PM ; [facility] Tobacco non-user 05/06/2023 Last Documented On 5 1:37PM ; [facility] Smoking Status Unknown Procedures and Surgical History Includes: Procedures from this encounter Procedures Code Diagnosis Performing Provider Service Location Service Date DRAIN/INJECT, JOINT/BURSA (LEFT) Other bursitis of hip, left hip Damaso Lujan PA-C [facility] 06/20/2024 Last Documented On 5 3:04PM ; [facility] Injection, betamethasone acetate 6mg per cc and betamethason J0702 Other bursitis of hip, left hip Damaso Lujan PA-C [facility] 06/20/2024 Last Documented On 5 3:04PM ; [facility] AP PELVIS w/ 1 VIEW HIP (LEFT) 58859 Other bursitis of hip, left hip Damaso Lujan PA-C [facility] 06/20/2024 Last Documented On 5 3:04PM ; [facility] X-RAY EXAM OF SHOULDER 2-3 VIEWS (RIGHT) 59972 Strain of musc/tend the rotator cuff of right shoulder, init Damaso Lujan PA-C [facility] 06/20/2024 Last Documented On 5 3:04PM ; [facility] use of tobacco assessment performed 1000F Last Documented On 5 1:37PM ; [facility] patient screened for future fall risk: [...] Documented On 5 1:37PM ; [facility] History of Irregular Heartbeat 3 Last Documented On 5 1:37PM ; [facility] Family History Includes: Family History addressed during this encounter Description Last Updated Family history of systemic hypertension 05/06/2023 Last Documented On 5 1:37PM ; [facility] Stroke / Seizures 05/06/2023 Last Documented On 5 1:37PM ; [facility] Maternal grandmother's history of system ic hypertension 05/06/2023 Last Documented On 5 1:37PM ; [facility] Maternal history of systemic hypertensio n 05/06/2023 Last Documented On 5 1:37PM ; [facility] Paternal grandmother's history of Stroke / Seizures 05/06/2023 Last Documented On 5 1:37PM ; [facility] Paternal history of family history [use for free text] 05/06/2023 Last Documented On 5 1:37PM ; [facility] Paternal history of systemic hypertensio n 05/06/2023 Last Documented On 5 1:37PM ; [facility] Review of Systems Includes: Review of [...] Diagnosis NEW PROBLEM/EST PT Damaso Lujan PA-C [facility] 06/20/19 25 1:35PM 2:32PM Overweight Insurance Includes: Active Insurance Policies Plan Name Member ID Group # Subscriber Relationship Effect ricki Dates 1 - Medicare Part B [facility] [id number] Marilee Murphy 2 - [facility] [employer] [id number] Marilee Murphy Clinical Notes Includes: Clinical Notes from this encounter * Progress note Date Encounter Last Documented by 06/20/2024 NEW PROBLEM/EST PT Last document ed on 06/28/2024; 12:54 PM, Damaso Lujan PA-C; [facility] Active Problems & Conditions - Joint [...] Tablet Sublingual 14 days, 0 refills - RESIDENT IN DIAGNOSTIC RADIOLOGY Thyroid 15 MG Oral Tablet 30 days, [...]
--- OUTSIDE RECORDS SUMMARY | 2024-09-08 09:29 | XMS_ITS | Clinical Summary ---
Author Organization [facility] Address [address] [place] [address] Phone Care Team Providers Care Outside Deliverer Name Role Phone Jed JEAN BAPTISTE, Chetan Unavailable [phone] Haresh Becerril MD Primary Care Provider [phone] Reason for Visit and Chief Complaint The Chief Complaint is: Right Knee Pain Problems Includes: Problems addressed during this encounter and other active Problems All Visits Onset Date Resolved Date Provider Condition S tatus Joint Pain, Localized in the Right Shoulder 06/20/2024 Damaso Lujan PA-C Active Last Documented On 5 1:37PM ; [facility] Joint Pain in the Right Knee 05/06/2023 Chetan Adkins MD Active Last Documented On 3 11:37AM ; [facility] Plan of Treatment Fall [...] - Last Documented On 06/21/2023 10:40AM ; [facility] Patient was seen by myself Damaso Lujan PA-C. Patient will follow up as needed for now if these help her group home she can do these again in 6 months. She is she can call around the 5th month to schedule those again. Patient was given Orthovisc injection 4th today for the right knee under sterile technique. She tolerated it well. Band-Aid was applied afterwards. See her back as needed for now - Last Documented On 06/21/2023 10:40AM ; [facility] Instructions to patient Lose weight Last Documented On 4 10:27AM ; [facility] Assessments Includes: Assessments from this encounter Findings - Overweight - Last Documented On 06/21/2023 10:40AM ; [facility] Right knee OA - Last Documented On 06/21/2023 10:40AM ; [facility] Instructions Includes: Instructions from this encounter Instructions to patient Lose weight Last Documented On 4 10:27AM ; [facility] Medical Equipment - Implanted Devices Includes: Current Devices No Medical Equipment Recorded Medications Includes: Medications discussed during this encounter and other current Medications Current Medications (continue as prescribed) Metoprolol Succinate ER 50 M G Oral Tablet Extended Release 24 Hour 06/19/2024 Provider: Diagnosis: Last Documented On 5 1:37PM By Royal Hua ; [facility] hydroCHLOROthiazide 12.5 MG Oral Tablet 06/02/2024 P rovider: Diagnosis: Last Documented On 5 1:37PM By Royal Hua ; [facility] Diclofenac Sodium 1% External Gel 06/14/2023 Pro vider: Diagnosis: Last Documented On 4 10:13AM By Amanda Mcpherson ; [facility] Bystolic 10 MG Oral Tablet 06/07/2023 Provider: Diagnosis: Last Documented On 4 10:34AM By Amanda Mcpherson ; [facility] Xarelto 10 MG Oral Tablet 06/07/2023 Provider: Diagnosis: Last Documented On 4 10:35AM By Amanda Mcpherson ; [facility] hydroCHLOROthiazide 12.5 MG Oral Tablet 03/22/2023 P rovider: Diagnosis: Last Documented On 3 11:38AM By Holly Michaels ; [facility] Lisinopril 10 MG Oral Tablet 02/25/2023 Provider: Diagnosis: Last Documented On 3 11:38AM By Holly Michaels ; [facility] Nitroglycerin 0.4 MG Sublingual Tablet Sublingual 08/23 Provider: Diagnosis: Last Documented On 4 10:33AM By Amanda Mcpherson ; [facility] [employer]EL RECORDS CLERK Thyroid 15 MG Oral Tablet 07/13/2022 Provider: [...] Documented On 4 10:27AM ; [facility] Tobacco non-user 05/06/2023 Last Documented On 4 10:27AM ; [facility] Smoking Status Unknown Procedures and Surgical History Includes: Procedures from this encounter Procedures Code Diagnosis Performing Provider Service L ocation Service Date use of tobacco assessment performed 1000F Last Documented On 4 10:27AM ; [facility] patient screened for future fall risk: documentation of any fall with injury in past year 1100F Last Documented On 4 10:27AM ; [facility] review of medications documented 1160F Last Documented On 4 10:27AM ; [facility] brace Last Documented On 4 10:27AM ; [facility] Surgical History Last Updated Past Surgical History: tubal ligation Last Documented On 4 10:27AM ; [facility] History of Past Surgical History: 2022 Last Documented On 4 10:27AM ; [facility] Medical History Includes: Medical History addressed during this encounter Description Last Updated History of Heartburn / Acid Reflux 05/06 Last Documented On 4 10:27AM ; [facility] History of Hypertension 05/06/2023 Last Documented On 4 10:27AM ; [facility] History of Irregular Heartbeat 3 Last Documented On 4 10:27AM ; [facility] Family History Includes: Family History addressed during this encounter Description Last Updated Family history of systemic hypertension 05/06/2023 Last Documented On 4 10:27AM ; [facility] Stroke / Seizures 05/06/2023 Last Documented On 4 10:27AM ; [facility] Maternal grandmother's history of system ic hypertension 05/06/2023 Last Documented On 4 10:27AM ; [facility] Maternal history of systemic hypertensio n 05/06/2023 Last Documented On 4 10:27AM ; [facility] Paternal grandmother's history of Stroke / Seizures 05/06/2023 Last Documented On 4 10:27AM ; [facility] Paternal history of family history [use for free text] 05/06/2023 Last Documented On 4 10:27AM ; [facility] Paternal history of systemic hypertensio n 05/06/2023 Last Documented On 4 10:27AM ; [facility] Review of Systems Includes: [...] Time Diagnosis COOLEY Injection Damaso Lujan PA-C [facility] 06/21/19 24 10:20AM 10:37AM Overweight Insurance Includes: Active Insurance Policies Plan Name Member ID Group # Subscriber Relationship Effect ricki Dates 1 - Medicare Part B [facility] [id number] Marilee Murphy 2 - [facility] [employer] [id number] Marilee Salvador Self Clinical Notes Includes: Clinical Notes from this encounter * Progress note Date Encounter Last Documented by 06/21/2023 COOLEY Injection Last documented on 06/21/2023; 10:40 AM, Damaso Lujan PA-C; [facility] Active Problems & Conditions - Joint Pain [...] Tablet Sublingual 14 days, 0 refills - 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
== END 2024-09-08 23:59 | disposition home or self-care (01) ==
LOC: RT 09:27
PROVIDERS: PCP Family Medicine; Visit Provider Physician Assistant
DX: I51.7 Cardiomegaly (principal); I48.0 Paroxysmal atrial fibrillation
CPT/HCPCS: 93306

== ENCOUNTER 2025-05-21 11:53 | Outpatient (CLI) | payer MEDICARE, SELFPAY ==
--- OUTSIDE RECORDS SUMMARY | 2025-05-21 11:56 | XMS_ITS | Clinical Summary ---
Author Organization Healthcare Address [address] [place] [address] Care Team Providers Care Face And Fill Packer Name Role Phone Chico Gaines MD Primary Care Provider [phone]- [phone] Allergies No known active allergies Medications metoprolol succinate XL (Toprol-XL) 50 MG 24 hr tablet Take 1 tablet by mouth daily. 06/19/2024 Active Encounters Date Type Department Care Team Description 04/09/[facility]25 [facility] [address] [place] [id number] Elvira Camejo from Last 3 Months Social History Tobacco Use Types Packs/Day Years Used Date Smoking Tobacco: Never Assessed Comments Unknown Sex and Gender Information Value Date Recorded Sex Assigned at Not on file Legal Sex Female 6:45 PM EDT Gender Identity Not on file Sexual Orientation Not on file Last Filed Vital Signs Vital Sign Reading Time Taken Comments Blood Pressure 153/89 09/28/2024 10:30 AM EDT Pulse 74 09/28/2024 10:30 AM EDT Temperature 36.6 C (97.9 F) 09/28/2024 10:30 AM EDT Respiratory Rate - - Oxygen Saturation 96% 09/28/2024 10: 30 AM EDT Inhaled Oxygen Concentration - - Weight 95.2 kg (209 lb 14.1 oz) 025 10:30 AM EDT Height 165.1 cm (5' 5 ) 09/28/2024 10:3 0 AM EDT Body Mass Index 34.93 09/28/2024 10:30 AM EDT Plan of Treatment Health Maintenance Due Date Last Done Comments Dental Oral Exam 1952 Dental Prophylaxis 1950 Dental X-Ray: Bitewings 1952 Dental X-Ray: Full Mouth 1952 [facility]-Bone Density Scan 1952 [facility]-Depression Screening 1952 [facility]-Hepatitis C Screening 1952 [facility]-Medicare Annual Wellness (AWV) 1952 [facility]-Infant/Child/Adol SDOH Screenings 1950 [facility]- SDOH Screenings 01/23/1970 [facility]-Adult SDOH Screenings 01/23/1970 [facility]-DTaP,Tdap,and Td Vaccine s (1 - Tdap) 01/23/1971 CT Colonography 01/23/1997 Colonoscopy 01/23/1997 FIT-DNA 01/23/1997 FIT 01/23/1997 FOBT 01/23/1997 Sigmoidoscopy 01/23/1997 [facility]-Colorectal Cancer Screening 01/23/1997 [facility]-Breast Cancer Screening 01/23/2002 [facility]-Pneumococcal Vaccine: 50 + Years (1 of 1 - PCV) 01/23/2002 [facility]-Zoster Vaccines (1 of 2) 01/23/2002 [facility]-PITFI-07 Vaccine (1 - 20 25-26 season) 2025 [facility]-Influenza Vaccine (#1) 2025 [facility]-RSV Vaccine: 60+ Years o r (1 - 1-dose 75+ series) 01/23/2027 [facility]-Obesity Intervention Completed 09/28/2024 HPV Vaccines (No Doses Required) Completed [facility]-HIB Vaccines Aged Out No longer e ligible based on patient's age to complete this topic [facility]-Hepatitis A Vaccines Aged Out No longer eligible based on patient's age to complete this topic [facility]-IPV Vaccines Aged Out No longer e ligible based on patient's age to complete this topic [facility]-Rotavirus Vaccines Aged Out No lo nger eligible based on patient's age to complete this topic Insurance [facility] Care Teams Face And Fill Packer Relationship Specialty Start Date End Date Chico Gaines MD [address] [place] [address] PCP - General 09/28/24
--- OUTSIDE RECORDS SUMMARY | 2025-05-21 11:56 | XMS_ITS | Encounter Summary ---
Author Organization Healthcare Address [address] [place] [address] Care Team Providers Care [employer]dl Company Driver Name Role Phone Pcp, No Primary Care Provider Chico Schneider MD Primary Care Provider +1- [phone] Reason for Referral * Consultation (Routine) - Closed Specialty Diagnoses / Procedures Referred By Contac t Referred To Contact Dentist / Pain Medicine Diagnoses Obstructive sleep apnea (adult) (pediatric) Brandy Ge MD fax: Trish Pool, DDS [address] [facility] [address] [place] [address] Phone: tel: fax: Referral ID Status Reason Start Date Expiration Date Visits Re quested Visits Authorized [id number] Closed 09/25/2024 03/27/2026 1 1 Encounter Details Date Type Department Care Team (Late st Contact Info) Description 09/25/2024 [facility] Orders [facility] [address] [place] [address] Brandy Ge MD Obstructive sleep apnea (adult) (pediatric) (Primary Dx) Social History Tobacco Use Types Packs/Day Years Used Date Smoking Tobacco: Never Assessed Comments Unknown Sex and Gender Information Value Date Recorded Sex Assigned at Not on file Legal Sex Female 6:45 PM EDT Gender Identity Not on file Sexual Orientation Not on file documented as of this encounter Plan of Treatment Scheduled Referrals Name Type Priority Associated Diagnoses Order Schedule Ambulatory Referral to Orofacial Pain Outpatient Referral Routine Obstructive sleep apnea (adult) (pediatric) Expected: 09/25/2024 (Approximate), Expires: 03/28/2026 documented as of this encounter Visit Diagnoses Diagnosis Obstructive sleep apnea (adult) (pediatric)- Primary documented in this encounter Care Teams [employer]dl Company Driver Relationship Specialty Start Date End Date Pcp, Patti [address] [place] [address] PCP - General Family Medicine 09/16/22 09/27/24 Chico Gaines MD [address] [place] [address] PCP - General 09/28/24 documented as of this encounter
--- OUTSIDE RECORDS SUMMARY | 2025-05-21 11:56 | XMS_ITS | Encounter Summary ---
Author Organization [facility] Address [address] [place] [address] Care Team Providers Care Debridging Machine Operator Name Role Phone Chico Gaines MD Primary Care Provider +1- [phone] Encounter Details Date Type Department Care Team (Late st Contact Info) Description 04/09/2025 Telephone [facility] [address] [place] [address] Elvira Camejo [phone] Social History Tobacco Use Types Packs/Day Years Used Date Smoking Tobacco: Never Assessed Comments Unknown Sex and Gender Information Value Date Recorded Sex Assigned at Not on file Legal Sex Female 6:45 PM EDT Gender Identity Not on file Sexual Orientation Not on file documented as of this encounter Miscellaneous Notes * Telephone Encounter - Elvira Camejo - 04/09/2025 2:44 PM EST Phone call complete documented in this encounter Plan of Treatment Not on file documented as of this encounter Visit Diagnoses Not on filedocumented in this encounter Additional Health Concerns Assessment Noted Time A Body Mass Index follow-up plan has been documented for the patient 10/02/2024 3:54 PM EDT documented as of this encounter Care Teams Debridging Machine Operator Relationship Specialty Start Date End Date Chico Gaines MD [address] [facility] [address] [place] [address] PCP - General 09/28/24 documented as of this encounter
[2025-05-21 11:58] LABS: Microscopic, Urine URINE MICROSCOPIC (MICROSCOPIC)
[2025-05-21 12:17] LABS: Bilirubin,Urine Negative (Negative); Color,Urine YELLOW (Yellow); Glucose,Urine (UA) Negative (Negative); Ketones,Urine Negative (Negative); Leukocyte Esterase,Urine Negative (Negative); PH,Urine 6.5 (5.0-8.5); Protein,Urine Negative (Negative); Specific Gravity, Urine 1.020 (1.005-1.030); Urobilinogen,Urine 0.2 EU/dl (0.2)
[2025-05-21 12:27] LABS: Hemoglobin A1C 5.7 % (4.0-6.0)
[2025-05-21 12:29] LABS: Hematocrit 39.3 % (37.0-47.0); Hemoglobin 12.8 g/dL (12.2-16.2); Immature Granulocytes % 0.3 %; Mean Corpuscular HGB Conc 32.6 g/dL (31.8-35.4); Mean Corpuscular Hemoglobin 27.4 pg (27.0-31.2); Mean Corpuscular Volume 84.0 fl (81-99); Nucleated Red Blood Cells % 0 %; Platelet Count 296 K/mm3 (142-424); Red Blood Count 4.68 M/mm3 (4.20-5.40); Red Cell Distribution Width-SD 49.7 fL; White Blood Count 7.2 K/mm3 (4.8-10.8)
[2025-05-21 12:35] LABS: RBC,Urine Occasional #/hpf (0-3)
[2025-05-21 12:36] LABS: Bacteria,Urine Trace /lpf; Squamous Epithelial Cell,Urine Occasional #/hpf (0-5); WBC,Urine Occasional #/hpf (0-3)
[2025-05-21 13:15] LABS: Chloride 106 mmol/L (98-107); Potassium 4.3 mmoL/L (3.5-5.1); Sodium 139 mmol/L (136-145)
[2025-05-21 13:17] LABS: Alanine Aminotransferase 19 U/L (12-78); Aspartate Amino Transferase 28 U/L (14-36); Bilirubin,Total 0.4 mg/dl (0.2-1.3); Blood Urea Nitrogen 16 mg/dl (7-17); Creatinine,Serum 0.70 mg/dl (0.52-1.04); Estimated Glomerular Filt Rate 82 ml/min (>60); GFR (African American) 99 ML/MIN (>60)
[2025-05-21 13:18] LABS: Alkaline Phosphatase 71 U/L (38-126); Calcium 10.5 mg/dl (8.4-10.2); Cholesterol 239 mg/dl (140-200); Glucose 95 mg/dl (74-100); HDL Cholesterol 82 mg/dl (40-60); Iron 64 ug/dL (37-170); Total Protein,Serum 7.4 g/dl (6.3-8.2); Triglycerides 124 mg/dl (30-150)
[2025-05-21 13:33] LABS: Total Iron Binding Capacity 441 ug/dL (265-497)
[2025-05-21 13:35] LABS: Free T4 (Free Thyroxine) 1.05 ng/dl (0.78-2.19)
[2025-05-21 13:37] LABS: 25-OH Vitamin D, Total 51.4 ng/mL (30-100)
[2025-05-21 13:50] LABS: Thyroid Stimulating Hormone 3.16 uIU/mL (0.465-4.68)
[2025-05-21 13:53] LABS: Ferritin 9.84 ng/ml (11.1-264)
[2025-05-21 14:17] LABS: Vitamin B12 820 pg/mL (239-931)
[2025-05-21 15:29] LABS: Albumin Level 4.3 g/dl (3.5-5.0); Albumin/Globulin Ratio 1.4 (1.1-1.8); Anion Gap 8.3 mEq/L (5-15); Carbon Dioxide 29 mmol/L (22.0-30.0); Globulin 3.1 g/dL (1.3-3.2)
== END 2025-05-21 23:59 | disposition home or self-care (01) ==
LOC: LAB 11:54
PROVIDERS: PCP Nurse Practitioner Family; Visit Provider Nurse Practitioner Family
DX: I48.0 Paroxysmal atrial fibrillation (principal); E11.9 Type 2 diabetes mellitus without complications; I10 Essential (primary) hypertension; Z13.220 Encounter for screening for lipoid disorders; Z13.29 Encounter for screening for other suspected endocrine disorder; E66.9 Obesity, unspecified; R41.3 Other amnesia; E55.9 Vitamin D deficiency, unspecified; G47.33 Obstructive sleep apnea (adult) (pediatric); R39.9 Unspecified symptoms and signs involving the genitourinary system
CPT/HCPCS: 36415; 80053; 80061; 81001; 82306; 82607; 82728; 83036; 83540; 83550; 84156; 84439; 84443; 85025; 87086